=== PATIENT | male | born 1940 | race Two or more races ===

== ENCOUNTER 2016-06-24 18:25 | Inpatient (IN) | payer OTHER, MEDICAID ==
[2016-06-24] MEDS ORDERED: NS 1,000 ML IV ONE ×2 (19:31→22:45)
--- NOTE | 2016-06-24 19:34 | EDPHY ---
H & P Stated Complaint: high blood sugar Time Seen by Provider: 06/24/16 19:26 HPI/ROS: CHIEF COMPLAINT: Hyperglycemia HISTORY OF PRESENT ILLNESS: The patient is a 76 year old man who comes to the emergency department with his son complaining of high glucose measurements all day today. They had lab work done today at the hospital and were called by the doctor and told to take an extra dose of Lantus. The patient is supposed to take 33 units of Lantus every evening and morning. He did not take his morning dose but took 33 units at noon and then was told to take an extra dose at 6:00 p.m. Son states that despite this that is continue to read high. The patient is asymptomatic. He denies having any dizziness or weakness. He denies abdominal pain or vomiting. He does have a history of dementia. He denies chest pain. He denies recent illness or fevers. REVIEW OF SYSTEMS: Constitutional: denies: chills, fever, recent illness, recent injury EENTM: denies: blurred vision, double vision, nose congestion Respiratory: denies: cough, shortness of breath Cardiac: denies: chest pain, irregular heart rate, lightheadedness, palpitations Gastrointestinal/Abdominal: denies: abdominal pain, diarrhea, nausea, vomiting, blood streaked stools Genitourinary: denies: dysuria, frequency, hematuria, pain Musculoskeletal: denies: joint pain, muscle pain Skin: denies: lesions, rash, jaundice, bruising Neurological: denies: headache, numbness, paresthesia, tingling, dizziness, weakness Hematologic/Lymphatic: denies: blood clots, easy bleeding, easy bruising Immunologic/allergic: denies: HIV/AIDS, transplant EXAM: GENERAL: Well-appearing, well-nourished and in no acute distress. HEAD: Atraumatic, normocephalic. EYES: Pupils equal round and reactive to light, extraocular movements intact, sclera anicteric, conjunctiva are normal. ENT: TMs normal, nares patent, oropharynx clear without exudates. Moist mucous membranes. NECK: Normal range of motion, supple without lymphadenopathy or JVD. LUNGS: Breath sounds clear to auscultation bilaterally and equal. No wheezes rales or rhonchi. HEART: Regular rate and rhythm without murmurs, rubs or gallops. ABDOMEN: Soft, nontender, normoactive bowel sounds. No guarding, no rebound. No masses appreciated. BACK: No CVA tenderness, no spinal tenderness, step-offs or deformities EXTREMITIES: Normal range of motion, no pitting or edema. No clubbing or cyanosis. NEUROLOGICAL: Cranial nerves II through XII grossly intact. Normal speech, normal gait. 5/5 strength, normal movement in all extremities, normal sensation PSYCH: Normal mood, normal affect. SKIN: Warm, dry, normal turgor, no visible rashes or lesions. Source: Patient Exam Limitations: No limitations - Personal History Current Tetanus/Diphtheria Vaccine: Unsure Current Tetanus Diphtheria and Acellular Pertussis (TDAP): Unsure - Medical/Surgical History Hx Asthma: No Hx Chronic Respiratory Disease: No Hx Diabetes: Yes Hx Cardiac Disease: Yes Hx Renal Disease: Yes Hx Cirrhosis: No Hx Alcoholism: Yes Hx HIV/AIDS: No Hx Splenectomy or Spleen Trauma: No Other PMH: PMH: Dementia, CVA, chronic kidney disease, DM type 2, HTN. PSH: - Family History Significant Family History: No pertinent family hx - Social History Smoking Status: Never smoked Alcohol Use: Sober Drug Use: None Constitutional: Initial Vital Signs Temperature (C) 36.4 C 06/24/16 18:38 Heart Rate 71 06/24/16 18:38 Respiratory Rate 16 06/24/16 18:38 Blood Pressure 154/85 H 06/24/16 18:38 O2 Sat (%) 96 06/24/16 18:38 O2 Delivery Mode Room Air Allergies/Adverse Reactions: glyburide Allergy (Verified 06/24/16 18:42) metformin Allergy (Verified 06/24/16 18:42) Home Medications: Medication Instructions Recorded Cholecalciferol Vit D3 [Vitamin D3 1,000 units PO DAILY 05/17/15 (*)] Furosemide [Lasix 40 MG (*)] 40 mg PO DAILY 05/17/15 Levothyroxine [Synthroid 75 mcg 75 mcg PO DAILY06 05/17/15 (*)] Losartan Potassium [Cozaar 25 mg 25 mg PO DAILY 05/17/15 (*)] Pravastatin Sodium [Pravachol] 40 mg PO HS 05/17/15 Solifenacin Succinate [Vesicare] 10 mg PO DAILY 05/17/15 amLODIPine BESYLATE [Norvasc 5 mg 5 mg PO DAILY 05/17/15 (*)] Aspirin EC [Aspirin EC 81 mg (*)] 81 mg PO HS 08/09/15 Clobetasol 0.05% [Temovate Topical 1 sloane TP BID 08/09/15 Solution] Diclofenac Sodium [Voltaren Gel 1 sloane TP DAILY PRN 08/09/15 (*)] Insulin Glargine [Lantus 100 20 units SC BID #0 ml 08/11/15 UNITS/ML (*)] Tamsulosin HCl [Flomax 0.4 MG (*)] 0.4 mg PO HS #30 cap 08/11/15 Vancomycin [Vancocin Oral Liquid] 125 mg PO QID #80 udl 08/11/15 levOFLOXACIN [levAQUIN (*)] 750 mg PO Q2D@1000 #2 tab 08/11/15 Medical Decision Making - Diagnostics EKG Interpretation: An EKG obtained and was read and documented in trace view. Please see trace view for full reading and report. Sinus rhythm, left bundle branch block unchanged from previous ED Course/Re-evaluation: The patient is hyperglycemic and acidotic. He does not have an anion gap because he is also hyponatremic. I have treated him with saline and an insulin bolus and began the drip. I discussed the case with Dr. Juan Antonio Paulino who agrees to admit. The patient has no complaints. I will add an EKG. Differential Diagnosis: Partial list of the Differential diagnosis considered include but were not limited to; hyperglycemia, acidosis, hyponatremia, dehydration, medication noncompliance and although unlikely based on the history and physical exam, I also considered infection, acute coronary disease, CVA. Critical Care Time: I spent a total of 35 minutes of critical care time in obtaining history, performing a physical exam, bedside monitoring of interventions, collecting and interpreting tests and discussion with consultants but not including time spent performing procedures. - Data Points Laboratory Results: Laboratory Results 06/24/16 19:48 06/24/16 19:48 06/24/16 06/24/16 19:48 19:47 WBC 5.53 10^3/uL (3.80-9.50) RBC 4.63 10^6/uL (4.40-6.38) Hgb 11.9 L g/dL (13.7-17.5) POC Hgb 12.9 L gm/dL (14.5-17.3) Hct 35.4 L % (40.0-51.0) POC Hct 38 L % (42.8-50.6) MCV 76.5 L fL (81.5-99.8) MCH 25.7 L pg (27.9-34.1) MCHC 33.6 g/dL (32.4-36.7) RDW 12.9 % (11.5-15.2) Plt Count 165 10^3/uL (150-400) MPV 10.7 fL (8.7-11.7) Neut % (Auto) 70.7 % (39.3-74.2) Lymph % (Auto) 19.9 % (15.0-45.0) [place] % (Auto) 6.5 % (4.5-13.0) Eos % (Auto) 2.0 % (0.6-7.6) Baso % (Auto) 0.5 % (0.3-1.7) Nucleat RBC Rel Count 0.0 % (0.0-0.2) Absolute Neuts (auto) 3.91 10^3/uL (1.70-6.50) Absolute Lymphs (auto) 1.10 10^3/uL (1.00-3.00) Absolute Monos (auto) 0.36 10^3/uL (0.30-0.80) Absolute Eos (auto) 0.11 10^3/uL (0.03-0.40) Absolute Basos (auto) 0.03 10^3/uL (0.02-0.10) Absolute Nucleated RBC 0.00 10^3/uL (0-0.01) Immature Gran % 0.4 % (0.0-1.1) Immature Gran # 0.02 10^3/uL (0.00-0.10) POC Sodium 125 L mEq/L (134-144) Sodium 122 L mEq/L (134-144) POC Potassium 5.1 H mEq/L (3.3-5.0) Potassium 5.5 H mEq/L (3.5-5.2) POC Chloride 95 L mEq/L (96-108) Chloride 90 L mEq/L (97-110) Carbon Dioxide 16 L mEq/l (22-31) Anion Gap 16 mEq/L (8-16) POC BUN 69 H mg/dL (7-23) BUN 76 H mg/dL (7-23) Creatinine 2.5 H mg/dL (0.7-1.3) POC Creatinine 2.7 H mg/dL (0.8-1.5) Estimated GFR 25 Glucose 744 H* mg/dL (70-100) POC Glucose > 700 H* mg/dL (70-100) Serum Osmolality Pending Calcium 8.7 mg/dL (8.5-10.4) Phosphorus 5.1 H mg/dL (2.5-4.5) Magnesium 1.9 mg/dL (1.6-2.3) Beta-Hydroxybutyrate Pending Medications Given: Discontinued Medications Sodium Chloride (Ns) 1,000 mls @ 0 mls/hr IV ONCE ONE PRN Reason: Wide Open Stop: 06/24/16 19:32 Last Admin: 06/24/16 19:31 Dose: 1,000 mls Insulin Human Regular (Humulin R) 10 unit IVP EDNOW ONE Stop: 06/24/16 20:05 Last Admin: 06/24/16 20:38 Dose: 10 units Point of Care Test Results: 06/24/16 19:47 POC Sodium 125 L POC Potassium 5.1 H POC Chloride 95 L POC BUN 69 H POC Creatinine 2.7 H POC Glucose > 700 H* Departure - Departure Disposition: [facility] Inpatient Acute Clinical Impression: Hyperglycemia, Hyponatremia Condition: Fair
[2016-06-24 20:01] LABS: % IMMATURE GRANULYOCYTES 0.4 % (0.0-1.1); ABSOLUTE IMMATURE GRANULOCYTES 0.02 10^3/uL (0.00-0.10); ADD DIFF? NO; ADD MORPH? NO; ADD SCAN? NO; ATYPICAL LYMPHOCYTE FLAG 0 (0-99); FRAGMENT RBC FLAG 0 (0-99); HEMATOCRIT 35.4 % (40.0-51.0); HEMOGLOBIN 11.9 g/dL (13.7-17.5); LEFT SHIFT FLG 0 (0-99); LIPEMIA HEMOLYSIS FLAG 80 (0-99); MEAN CELL HEMOGLOBIN 25.7 pg (27.9-34.1); MEAN CELL HEMOGLOBIN CONCENTR. 33.6 g/dL (32.4-36.7); MEAN CELL VOLUME 76.5 fL (81.5-99.8); MEAN PLATELET VOLUME 10.7 fL (8.7-11.7); PLATELET CLUMPS FLAG 10 (0-99); PLATELET COUNT 165 10^3/uL (150-400); RED BLOOD CELL COUNT 4.63 10^6/uL (4.40-6.38); RED CELL DISTRIBUTION WIDTH 12.9 % (11.5-15.2)
[2016-06-24] MEDS ORDERED: INSULIN REGULAR HUMAN 100 UNIT, COSIGN. REQUIRED 1 EA in NS 100 ML IV ONE (20:04)
[2016-06-24] MEDS ORDERED: INSULIN REGULAR HUMAN 100 UNIT/ML IVP ONE (20:04)
[2016-06-24 20:17] LABS: ANION GAP 16 mEq/L (8-16); CALCIUM 8.7 mg/dL (8.5-10.4); CARBON DIOXIDE 16 mEq/l (22-31); CHLORIDE 90 mEq/L (97-110); CREATININE 2.5 mg/dL (0.7-1.3); GLOMERULAR FILTRATION RATE 25; MAGNESIUM 1.9 mg/dL (1.6-2.3); POTASSIUM 5.5 mEq/L (3.5-5.2); SODIUM 122 mEq/L (134-144)
[2016-06-24 20:28] LABS: GLUCOSE 744 mg/dL (70-100)
[2016-06-24 20:39] LABS: B-HYDROXYBUTYRATE 0.25 mmol/L (0.02-0.27)
[2016-06-24] MEDS ORDERED: INSULIN REGULAR HUMAN 100 UNIT in NS 100 ML IV SCH ×2 (20:44→23:00)
--- NOTE | 2016-06-24 20:49 | CPEKG ---
Heart Rate: 69 RR Interval: 870 P-R Interval: 172 QRSD Interval: 182 QT Interval: 468 QTC Interval: 502 P [place]: 5 QRS [place]: -52 T Wave [place]: 95 EKG Severity - ABNORMAL ECG - EKG Impression: SINUS RHYTHM EKG Impression: LEFT BUNDLE BRANCH BLOCK EKG Impression: unchanged from previous Electronically Signed By: Andrews Lopez 24-Jun-2016 20:49:18
[2016-06-24 22:05] LABS: ANION GAP 12 mEq/L (8-16); CALCIUM 8.3 mg/dL (8.5-10.4); CARBON DIOXIDE 19 mEq/l (22-31); CHLORIDE 98 mEq/L (97-110); CREATININE 2.4 mg/dL (0.7-1.3); GLOMERULAR FILTRATION RATE 26; POTASSIUM 4.4 mEq/L (3.5-5.2); SODIUM 129 mEq/L (134-144)
[2016-06-24 22:18] LABS: GLUCOSE 515 mg/dL (70-100)
[2016-06-24] MEDS ORDERED: ACETAMINOPHEN 650 MG SUPP PR PRN (22:42)
--- NOTE | 2016-06-25 00:40 | PDGENHP ---
History and Physical - Chief Complaint elevated blood sugar - History of Present Illness 76 yo M with PMH of uncontrolled DM, dementia and ckd admitted with concerns of BS being very elevated noted by his son and labs obtained per Dr. Núñez earlier today. Patient is Lao speaking only, but also poor historian 2/2 his dementia, and much of this history is therefore obtained from his family present at bedside. They note that he has seemed more tired than usual, but that he also will never complain, and no matter what, will say he is "fine". He does note that he has been very thirsty lately. Patient lives independently with his , who is wheelchair bound and also diabetic. They have some help with their medications by visiting nurses. He denies non compliance with medications. His states that not long ago he was having issues with low blood sugar, to the 30s. She believes his BS has been largely well controlled. Reviewed with them that his A1c was over 16. He denies any other complaints. History Information - Allergies/Home Medication List Allergies/Adverse Reactions: glyburide Allergy (Verified 06/24/16 18:42) metformin Allergy (Verified 06/24/16 18:42) Home Medications: Cholecalciferol Vit D3 [Vitamin D3 (*)] 1,000 units PO DAILY 05/17/15 [Last Taken 08/08/15] Furosemide [Lasix 40 MG (*)] 40 mg PO DAILY 05/17/15 [Last Taken 08/08/15] Levothyroxine [Synthroid 75 mcg (*)] 75 mcg PO DAILY06 05/17/15 [Last Taken ] Losartan Potassium [Cozaar 25 mg (*)] 25 mg PO DAILY 05/17/15 [Last Taken ] amLODIPine BESYLATE [Norvasc 5 mg (*)] 5 mg PO DAILY 05/17/15 [Last Taken ] Aspirin EC [Aspirin EC 81 mg (*)] 81 mg PO HS 08/09/15 [Last Taken 08/07/15] Insulin Glargine [Lantus 100 UNITS/ML (*)] 33 units SC BID 06/24/16 [Last Taken Unknown] I have personally reviewed and updated: family history, medical history, social history, surgical history - Past Medical History CVA, dementia, diabetes type 2, GERD, hypertension Additional medical history: CKD--baseline creatinine 2.5. hypothyroid. hx of c diff. EF 55% - Surgical History Reports: no pertinent surgical hx - Family History Positive for: non-pertinent - Social History Smoking Status: Never smoked Alcohol Use: Sober (prior heavy etoh) Drug Use: None Additional social history: lives independently with Review of Systems ROS: 10pt was reviewed & negative except for what was stated in HPI & below Physical Exam Temp Pulse Resp BP Pulse Ox 36.6 C 70 12 144/74 H 98 06/24/16 23:11 06/24/16 23:11 06/24/16 23:11 06/24/16 23:11 06/24/16 23:11 Constitutional: no apparent distress, appears nourished, chronically ill appearing, unkempt Eyes: PERRL Ears, Nose, Mouth, Throat: moist mucous membranes, hearing normal Cardiovascular: regular rate and rhythym, no murmur, rub, or gallop, No edema Respiratory: no respiratory distress, no rales or rhonchi Gastrointestinal: normoactive bowel sounds, soft, non-tender abdomen Skin: warm, normal color Musculoskeletal: full muscle strength, No asymmetric calves Neurologic: CN II-XII Intact, No weakness, No numbness Psychiatric: interacting appropriately, encephalopathic Lab Data & Imaging Review 06/24/16 19:48 06/24/16 21:40 WBC 5.53 10^3/uL (3.80-9.50) 06/24/16 19:48 RBC 4.63 10^6/uL (4.40-6.38) 06/24/16 19:48 Hgb 11.9 g/dL (13.7-17.5) L 06/24/16 19:48 POC Hgb 12.9 gm/dL (14.5-17.3) L 06/24/16 19:47 Hct 35.4 % (40.0-51.0) L 06/24/16 19:48 POC Hct 38 % (42.8-50.6) L 06/24/16 19:47 MCV 76.5 fL (81.5-99.8) L 06/24/16 19:48 MCH 25.7 pg (27.9-34.1) L 06/24/16 19:48 MCHC 33.6 g/dL (32.4-36.7) 06/24/16 19:48 RDW 12.9 % (11.5-15.2) 06/24/16 19:48 Plt Count 165 10^3/uL (150-400) 06/24/16 19:48 MPV 10.7 fL (8.7-11.7) 06/24/16 19:48 Neut % (Auto) 70.7 % (39.3-74.2) 06/24/16 19:48 Lymph % (Auto) 19.9 % (15.0-45.0) 06/24/16 19:48 [place] % (Auto) 6.5 % (4.5-13.0) 06/24/16 19:48 Eos % (Auto) 2.0 % (0.6-7.6) 06/24/16 19:48 Baso % (Auto) 0.5 % (0.3-1.7) 06/24/16 19:48 Nucleat RBC Rel Count 0.0 % (0.0-0.2) 06/24/16 19:48 Absolute Neuts (auto) 3.91 10^3/uL (1.70-6.50) 06/24/16 19:48 Absolute Lymphs (auto) 1.10 10^3/uL (1.00-3.00) 06/24/16 19:48 Absolute Monos (auto) 0.36 10^3/uL (0.30-0.80) 06/24/16 19:48 Absolute Eos (auto) 0.11 10^3/uL (0.03-0.40) 06/24/16 19:48 Absolute Basos (auto) 0.03 10^3/uL (0.02-0.10) 06/24/16 19:48 Absolute Nucleated RBC 0.00 10^3/uL (0-0.01) 06/24/16 19:48 Immature Gran % 0.4 % (0.0-1.1) 06/24/16 19:48 Immature Gran # 0.02 10^3/uL (0.00-0.10) 06/24/16 19:48 POC Sodium 125 mEq/L (134-144) L 06/24/16 19:47 Sodium 129 mEq/L (134-144) L 06/24/16 21:40 POC Potassium 5.1 mEq/L (3.3-5.0) H 06/24/16 19:47 Potassium 4.4 mEq/L (3.5-5.2) 06/24/16 21:40 POC Chloride 95 mEq/L (96-108) L 06/24/16 19:47 Chloride 98 mEq/L (97-110) 06/24/16 21:40 Carbon Dioxide 19 mEq/l (22-31) L 06/24/16 21:40 Anion Gap 12 mEq/L (8-16) 06/24/16 21:40 POC BUN 69 mg/dL (7-23) H 06/24/16 19:47 BUN 73 mg/dL (7-23) H 06/24/16 21:40 Creatinine 2.4 mg/dL (0.7-1.3) H 06/24/16 21:40 POC Creatinine 2.7 mg/dL (0.8-1.5) H 06/24/16 19:47 Estimated GFR 26 06/24/16 21:40 Glucose 515 mg/dL (70-100) H* 06/24/16 21:40 POC Glucose 268 mg/dL (70-100) H 06/24/16 23:12 Serum Osmolality 329 mosmo/kg (280-297) H 06/24/16 19:48 Calcium 8.3 mg/dL (8.5-10.4) L 06/24/16 21:40 Phosphorus 5.1 mg/dL (2.5-4.5) H 06/24/16 19:48 Magnesium 1.9 mg/dL (1.6-2.3) 06/24/16 19:48 Beta-Hydroxybutyrate 0.25 mmol/L (0.02-0.27) 06/24/16 19:48 Urine Osmolality 405 mosmo/kg (300-900) 06/24/16 22:00 Visualized and Interpreted EKG results: Yes EKG Interpretation: Positive for: left bundle branch block, normal sinsus rhythm Assessment & Plan Assessment: 76 yo M with hx of uncontrolled DM pw HHS # HHS: BS > 700 on arrival, not acidotic but with increased somnolence c/w HHS. Will rehydrates, start insulin gtt for now and transition to SC insulin in am. Monitoring serial labs. # uncontrolled DM2: with AIc of 16.6, patient and his seem to lack some insight into what the control of his DM has really been. Son present at bedside is involved and recognizes the concerns associated with such poorly controlled BS. Tx for now as above, will need close f/u for improved gluc mgmt. # ckd: this seems to be at baseline, will monitor while in house # hyperkalemia: in setting of above, improved with IVF, no ecg changes # hyponatremia: pseudohyponatremia related to elevated BS, improving # dementia: slightly worse than baseline currently in setting of HHS, monitoring # DNR # IP status, will likely need > 48 hours stay for eval/mgmt of above Pt new to my care. Old records reviewed and summarized as above. Care plan reviewed with ER doctor including plans for insulin. Further hx obtained from patients family present at bedside.
[2016-06-25 01:02] LABS: ANION GAP 10 mEq/L (8-16); CALCIUM 7.5 mg/dL (8.5-10.4); CARBON DIOXIDE 19 mEq/l (22-31); CHLORIDE 107 mEq/L (97-110); CREATININE 2.1 mg/dL (0.7-1.3); GLOMERULAR FILTRATION RATE 31; GLUCOSE 177 mg/dL (70-100); POTASSIUM 3.8 mEq/L (3.5-5.2); SODIUM 136 mEq/L (134-144)
[2016-06-25] MEDS ORDERED: D50W 25 GM/50 ML SYR IVP ONE (04:19)
[2016-06-25 04:33] LABS: % IMMATURE GRANULYOCYTES 0.4 % (0.0-1.1); ABSOLUTE IMMATURE GRANULOCYTES 0.02 10^3/uL (0.00-0.10); ADD DIFF? NO; ADD MORPH? NO; ADD SCAN? NO; ATYPICAL LYMPHOCYTE FLAG 10 (0-99); FRAGMENT RBC FLAG 0 (0-99); HEMOGLOBIN 10.2 g/dL (13.7-17.5); LEFT SHIFT FLG 0 (0-99); LIPEMIA HEMOLYSIS FLAG 90 (0-99); MEAN CELL HEMOGLOBIN 26.5 pg (27.9-34.1); MEAN CELL HEMOGLOBIN CONCENTR. 35.2 g/dL (32.4-36.7); MEAN CELL VOLUME 75.3 fL (81.5-99.8); MEAN PLATELET VOLUME 10.4 fL (8.7-11.7); PLATELET CLUMPS FLAG 0 (0-99); PLATELET COUNT 151 10^3/uL (150-400); RED BLOOD CELL COUNT 3.85 10^6/uL (4.40-6.38); RED CELL DISTRIBUTION WIDTH 12.8 % (11.5-15.2)
[2016-06-25 04:54] LABS: ANION GAP 10 mEq/L (8-16); CALCIUM 8.2 mg/dL (8.5-10.4); CARBON DIOXIDE 21 mEq/l (22-31); CHLORIDE 106 mEq/L (97-110); CREATININE 2.3 mg/dL (0.7-1.3); GLOMERULAR FILTRATION RATE 28; GLUCOSE 55 mg/dL (70-100); MAGNESIUM 1.8 mg/dL (1.6-2.3); SODIUM 137 mEq/L (134-144)
[2016-06-25] MEDS: NS 1,000 ML IV SCH ×4 (05:24→21:24)
[2016-06-25] MEDS ORDERED: D50W 25 GM/50 ML SYR IVP PRN (06:37)
[2016-06-25] MEDS: HEPARIN 5,000 UNIT/0.5 ML SYR SC SCH ×3 (06:47→21:09)
[2016-06-25] MEDS: LEVOTHYROXINE 75 MCG TAB PO SCH (06:47)
[2016-06-25] MEDS ORDERED: amLODIPine BESYLATE 5 MG TAB PO SCH ×2 (09:00→17:48)
[2016-06-25] MEDS ORDERED: INSULIN REGULAR HUMAN 100 UNIT/ML SC ONE (09:00)
[2016-06-25] MEDS: CHOLECALCIFEROL VIT D3 1,000 UNITS TAB PO SCH (09:45)
[2016-06-25] MEDS: FUROSEMIDE 40 MG TAB PO SCH (09:45)
[2016-06-25] MEDS: LOSARTAN POTASSIUM 25 MG TAB PO SCH (09:45)
[2016-06-25] MEDS: PANTOPRAZOLE SODIUM 40 MG TAB PO SCH (09:45)
[2016-06-25] MEDS: INSULIN LISPRO 100 UNIT/ML SC SCH ×3 (12:58→17:43)
--- NOTE | 2016-06-25 17:46 | HOSPPROG ---
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 # chronic dementia at baseline #Dehydration due to above PLANS: -continue IV hydration for -For now continue short-acting insulin to determine what his daily needs are and eventually resume long-acting insulin once we see where he ends up -he should probably treated with both long and short-acting insulin at home but he has had lot of hypoglycemia problems doing so; it is clear that he will need to have more diabetes monitoring to safely treat his diabetes -physical occupational therapies; he will need supervised facility care at the time of discharge due to fall risk as well as his diabetes needs -increase antihypertensives SUBJECTIVE: the patient states he feels well His tells me that he has had extensive problems with hypoglycemia at home with various insulin regimens. They finally ended up on a lower dose of long- acting insulin without any short-acting and he now comes in with sugars greater than 700. In retrospect his does recognize that he has been quite polyuric and with marked polydipsia at home for probably 2 or 3 months. Due to her own disabilities however she has not been monitoring his sugars and his dementia prevents him from doing it himself. OBJECTIVE Vitals reviewed: Hypertension, otherwise Stable without fever Exam: alert oriented skin warm dry color ok resps not labored lungs clear BSs heart regular abd soft nondistended nontender, bowel sounds present limbs warm, no edema iv site ok Objective: Vital Signs Temp Pulse Resp BP Pulse Ox 36.3 C 70 18 181/80 H 98 06/25/16 17:21 06/25/16 17:21 06/25/16 17:21 06/25/16 17:21 06/25/16 17:21 Laboratory Results 06/25/16 04:10 06/25/16 04:10 06/24/16 06/25/16 06/26/16 06:59 06:59 06:59 Intake Total 0844 2901 Output Total 150 225 Balance 2556 7088 ICD10 Worksheet Patient Problems: Problems Problem Status Diagnosed Hyperglycemia Acute Hyponatremia Acute Acute on chronic renal insufficiency Acute Altered mental status Acute C. difficile diarrhea Acute 08/09/15 Chronic Disease Mgmt/Transitional Care Acute Chronic renal failure Acute Elevated troponin Acute Pneumonia Acute Rash and nonspecific skin eruption Acute
[2016-06-25] MEDS: amLODIPine BESYLATE 5 MG TAB PO SCH (18:42)
[2016-06-25] MEDS: METOPROLOL TARTRATE 25 MG TAB PO SCH (21:07)
[2016-06-25] MEDS: ASPIRIN EC 81 MG TAB PO SCH (21:07)
[2016-06-25] MEDS: TAMSULOSIN HCL 0.4 MG CAP PO SCH (21:07)
[2016-06-26] MEDS: NS 1,000 ML IV SCH ×2 (02:47→11:28)
[2016-06-26] MEDS: HEPARIN 5,000 UNIT/0.5 ML SYR SC SCH ×3 (05:46→21:22)
[2016-06-26] MEDS: LEVOTHYROXINE 75 MCG TAB PO SCH (05:47)
[2016-06-26] MEDS: FUROSEMIDE 40 MG TAB PO SCH (09:21)
[2016-06-26] MEDS: amLODIPine BESYLATE 5 MG TAB PO SCH (09:21)
[2016-06-26] MEDS: METOPROLOL TARTRATE 25 MG TAB PO SCH ×2 (09:21→21:23)
[2016-06-26] MEDS: CHOLECALCIFEROL VIT D3 1,000 UNITS TAB PO SCH (09:22)
[2016-06-26] MEDS: PANTOPRAZOLE SODIUM 40 MG TAB PO SCH (09:22)
[2016-06-26] MEDS: LOSARTAN POTASSIUM 25 MG TAB PO SCH (09:22)
[2016-06-26] MEDS: INSULIN LISPRO 100 UNIT/ML SC SCH ×6 (09:29→18:13)
--- NOTE | 2016-06-26 16:22 | HOSPPROG ---
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 # chronic dementia at baseline #Dehydration due to above PLANS: -stop IV hydration fand follow sugars -For now continue short-acting insulin to determine what his daily needs are and eventually resume long-acting insulin once we see where he ends up -he should probably treated with both long and short-acting insulin at home but he has had lot of hypoglycemia problems doing so; it is clear that he will need to have more diabetes monitoring to safely treat his diabetes -physical occupational therapies; he will need supervised facility care at the time of discharge due to fall risk as well as his diabetes needs -increase antihypertensives SUBJECTIVE: the patient states he feels well no acute abnormal ss walking better OBJECTIVE Vitals reviewed: Hypertension, otherwise Stable without fever Exam: alert oriented skin warm dry color ok resps not labored lungs clear BSs heart regular abd soft nondistended nontender, bowel sounds present limbs warm, no edema iv site ok sugars in reasonable range w no lows Objective: Vital Signs Temp Pulse Resp BP Pulse Ox 36.4 C 60 16 148/66 H 97 06/26/16 16:00 06/26/16 16:00 06/26/16 16:00 06/26/16 16:00 06/26/16 16:00 Laboratory Results 06/25/16 04:10 06/25/16 04:10 06/25/16 06/26/16 06/27/16 06:59 06:59 06:59 Intake Total 0910 7293 Output Total 150 225 Balance 7200 4970 ICD10 Worksheet Patient Problems: Problems Problem Status Diagnosed Hyperglycemia Acute Hyponatremia Acute Acute on chronic renal insufficiency Acute Altered mental status Acute C. difficile diarrhea Acute 08/09/15 Chronic Disease Mgmt/Transitional Care Acute Chronic renal failure Acute Elevated troponin Acute Pneumonia Acute Rash and nonspecific skin eruption Acute
[2016-06-26] MEDS: TAMSULOSIN HCL 0.4 MG CAP PO SCH (21:22)
[2016-06-26] MEDS: ASPIRIN EC 81 MG TAB PO SCH (21:23)
[2016-06-27] MEDS: LEVOTHYROXINE 75 MCG TAB PO SCH (06:26)
[2016-06-27] MEDS: HEPARIN 5,000 UNIT/0.5 ML SYR SC SCH ×3 (06:26→21:22)
[2016-06-27] MEDS: CHOLECALCIFEROL VIT D3 1,000 UNITS TAB PO SCH (08:28)
[2016-06-27] MEDS: INSULIN LISPRO 100 UNIT/ML SC SCH ×6 (08:28→17:29)
[2016-06-27] MEDS: amLODIPine BESYLATE 5 MG TAB PO SCH (08:28)
[2016-06-27] MEDS: PANTOPRAZOLE SODIUM 40 MG TAB PO SCH (08:29)
[2016-06-27] MEDS: FUROSEMIDE 40 MG TAB PO SCH (08:29)
[2016-06-27] MEDS: METOPROLOL TARTRATE 25 MG TAB PO SCH ×2 (08:29→21:22)
[2016-06-27] MEDS: LOSARTAN POTASSIUM 25 MG TAB PO SCH (08:29)
[2016-06-27] MEDS: INSULIN GLARGINE 100 UNITS/ML SYRINGE SC SCH ×2 (12:02→21:22)
[2016-06-27 12:53] LABS: HEMATOCRIT 30.2 % (40.0-51.0); HEMOGLOBIN 10.4 g/dL (13.7-17.5); MEAN CELL HEMOGLOBIN 26.9 pg (27.9-34.1); MEAN CELL HEMOGLOBIN CONCENTR. 34.4 g/dL (32.4-36.7); RED BLOOD CELL COUNT 3.87 10^6/uL (4.40-6.38); RED CELL DISTRIBUTION WIDTH 13.8 % (11.5-15.2)
[2016-06-27 13:10] LABS: ANION GAP 11 mEq/L (8-16); CALCIUM 8.4 mg/dL (8.5-10.4); CARBON DIOXIDE 18 mEq/l (22-31); CHLORIDE 108 mEq/L (97-110); CREATININE 2.5 mg/dL (0.7-1.3); GLOMERULAR FILTRATION RATE 25; GLUCOSE 277 mg/dL (70-100); POTASSIUM 4.8 mEq/L (3.5-5.2); SODIUM 137 mEq/L (134-144)
--- NOTE | 2016-06-27 14:29 | HOSPPROG ---
Hospitalist Progress Note Assessment/Plan: # hyperosmolar nonketotic diabetic state- BS in 700's on admit - pt with both hypo and hyperglycemia at home - previously on 33 units lantus BID BS 230-290's overnight - 32 units of SSI - start glargine 10units BID - cont SSI # uncontrolled type 2 diabetes mellitus- as above - goal should be to remain in low 200's to avoid hypoglycemia at home # uncontrolled hypertension- SBP 160-170's- EKG( personally reviewed and interpreted) left bundle branch block no acute changes oxygen saturations 94% on room air - continue norvasc and lasix - - increase losartan to 50mg daily # Gait instability, chronic but unsafe with high fall risk - PT/OT # chronic dementia at baseline #Dehydration due to above- resolving # proph - lovenox # diet - diabetic # dispo - suspect tomorrow if glycemic control improved and stable on lantus BID I have discussed the case with physical therapy- patient ambulated to the end of the [place] yesterday they see improvement in strength Subjective: hungry and denies pain Objective: Vital Signs Temp Pulse Resp BP Pulse Ox 37.2 C 62 14 162/81 H 95 06/27/16 07:41 06/27/16 07:41 06/27/16 07:41 06/27/16 08:28 06/27/16 07:41 Laboratory Results 06/27/16 12:17 06/27/16 12:17 06/26/16 06/27/16 06/28/16 05:59 05:59 05:59 Intake Total 5191 1400 Output Total 225 200 Balance 4966 1200 - Physical Exam Constitutional: obese Eyes: anicteric sclera Ears, Nose, Mouth, Throat: moist mucous membranes Cardiovascular: regular rate and rhythym Respiratory: no respiratory distress, no rales or rhonchi Gastrointestinal: normoactive bowel sounds, soft, non-tender abdomen Genitourinary: no bladder fullness Skin: warm, normal color Musculoskeletal: No asymmetric calves Neurologic: No AAOx3 Psychiatric: interacting appropriately, No agitated Lymph, Heme, Immunologic: no cervical LAD ICD10 Worksheet Patient Problems: Problems Problem Status Diagnosed Hyperglycemia Acute Hyponatremia Acute Acute on chronic renal insufficiency Acute Altered mental status Acute C. difficile diarrhea Acute 08/09/15 Chronic Disease Mgmt/Transitional Care Acute Chronic renal failure Acute Elevated troponin Acute Pneumonia Acute Rash and nonspecific skin eruption Acute
[2016-06-27 16:26] VITALS: RESP 16
[2016-06-27] MEDS: ASPIRIN EC 81 MG TAB PO SCH (21:22)
[2016-06-27] MEDS: TAMSULOSIN HCL 0.4 MG CAP PO SCH (21:22)
[2016-06-28] MEDS: HEPARIN 5,000 UNIT/0.5 ML SYR SC SCH ×3 (06:09→21:13)
[2016-06-28] MEDS: LEVOTHYROXINE 75 MCG TAB PO SCH (06:09)
[2016-06-28] MEDS: INSULIN LISPRO 100 UNIT/ML SC SCH ×5 (08:19→19:13)
[2016-06-28] MEDS: INSULIN GLARGINE 100 UNITS/ML SYRINGE SC SCH ×2 (08:22→21:12)
[2016-06-28] MEDS: METOPROLOL TARTRATE 25 MG TAB PO SCH ×2 (08:25→19:56)
[2016-06-28] MEDS: FUROSEMIDE 40 MG TAB PO SCH (08:25)
[2016-06-28] MEDS: amLODIPine BESYLATE 5 MG TAB PO SCH (08:25)
[2016-06-28] MEDS: CHOLECALCIFEROL VIT D3 1,000 UNITS TAB PO SCH (08:26)
[2016-06-28] MEDS: LOSARTAN POTASSIUM 50 MG TAB PO SCH (08:26)
[2016-06-28] MEDS: PANTOPRAZOLE SODIUM 40 MG TAB PO SCH (08:26)
[2016-06-28] MEDS ORDERED: INSULIN GLARGINE 100 UNITS/ML SYRINGE SC ONE (09:00)
[2016-06-28] MEDS ORDERED: INSULIN LISPRO 100 UNIT/ML SC SCH (09:05)
[2016-06-28 10:02] LABS: CARBON DIOXIDE 20 mEq/l (22-31); CREATININE 2.4 mg/dL (0.7-1.3); GLOMERULAR FILTRATION RATE 26
[2016-06-28 10:11] LABS: ANION GAP 9 mEq/L (8-16); CALCIUM 8.2 mg/dL (8.5-10.4); CHLORIDE 104 mEq/L (97-110); GLUCOSE 312 mg/dL (70-100); POTASSIUM 4.4 mEq/L (3.5-5.2); SODIUM 133 mEq/L (134-144)
--- NOTE | 2016-06-28 12:50 | HOSPPROG ---
Hospitalist Progress Note Assessment/Plan: # hyperosmolar nonketotic diabetic state- BS in 700's on admit - previously on 33 units lantus BID BS 230-290's overnight - 38 units of SSI- BS > 350 after lunch today - increase glargine 25 units BID - increase TID meal insulin to 10 units # uncontrolled type 2 diabetes mellitus- as above - goal should be to remain in low 200's to avoid hypoglycemia at home # uncontrolled hypertension- SBP 160-170's- EKG (personally reviewed and interpreted) left bundle branch block no acute changes oxygen saturations 94% on room air - continue norvasc and lasix - increased losartan to 50mg daily- continue to monitor on new dose # Gait instability, chronic but unsafe with high fall risk - PT/OT # chronic dementia at baseline # Dehydration due to above- resolving # proph - lovenox # diet - diabetic # dispo - suspect tomorrow if glycemic control improved and stable on lantus BID I have discussed the case with RN - will further increase both glargine and meal insulin as Bs > 350 after lunch Subjective: anxious to get home Objective: Vital Signs Temp Pulse Resp BP Pulse Ox 37.0 C 58 L 16 126/59 H 93 06/28/16 11:28 06/28/16 11:28 06/28/16 11:28 06/28/16 11:28 06/28/16 11:28 Laboratory Results 06/27/16 12:17 06/28/16 09:30 06/27/16 06/28/16 06/29/16 05:59 05:59 05:59 Intake Total 1400 500 Output Total 200 1400 Balance 1200 -900 - Physical Exam Constitutional: appears nourished Eyes: anicteric sclera Ears, Nose, Mouth, Throat: moist mucous membranes Cardiovascular: regular rate and rhythym Respiratory: no respiratory distress, no rales or rhonchi Gastrointestinal: normoactive bowel sounds, soft, non-tender abdomen Genitourinary: no bladder fullness Skin: warm, normal color Musculoskeletal: No asymmetric calves Neurologic: No AAOx3 Psychiatric: interacting appropriately, No agitated Lymph, Heme, Immunologic: no cervical LAD ICD10 Worksheet Patient Problems: Problems Problem Status Diagnosed Hyperglycemia Acute Hyponatremia Acute Acute on chronic renal insufficiency Acute Altered mental status Acute C. difficile diarrhea Acute 02/26/16 Chronic Disease Mgmt/Transitional Care Acute Chronic renal failure Acute Elevated troponin Acute Pneumonia Acute Rash and nonspecific skin eruption Acute
[2016-06-28] MEDS: LOSARTAN POTASSIUM 25 MG TAB PO ONE ×2 (15:47→17:15)
[2016-06-28] MEDS: ASPIRIN EC 81 MG TAB PO SCH (19:56)
[2016-06-28] MEDS: TAMSULOSIN HCL 0.4 MG CAP PO SCH (19:57)
[2016-06-28] MEDS ORDERED: INSULIN GLARGINE 100 UNITS/ML SYRINGE SC SCH ×2 (21:00)
[2016-06-29] MEDS: HEPARIN 5,000 UNIT/0.5 ML SYR SC SCH (05:23)
[2016-06-29] MEDS: LEVOTHYROXINE 75 MCG TAB PO SCH (05:25)
[2016-06-29 08:07] VITALS: TEMP 99.1; O2SAT 91
[2016-06-29] MEDS: INSULIN LISPRO 100 UNIT/ML SC SCH ×4 (09:35→12:53)
[2016-06-29] MEDS: LOSARTAN POTASSIUM 50 MG TAB PO SCH (09:46)
[2016-06-29] MEDS: FUROSEMIDE 40 MG TAB PO SCH (09:46)
[2016-06-29] MEDS: CHOLECALCIFEROL VIT D3 1,000 UNITS TAB PO SCH (09:46)
[2016-06-29] MEDS: amLODIPine BESYLATE 5 MG TAB PO SCH (09:46)
[2016-06-29] MEDS: PANTOPRAZOLE SODIUM 40 MG TAB PO SCH (09:47)
[2016-06-29] MEDS: METOPROLOL TARTRATE 25 MG TAB PO SCH (09:47)
[2016-06-29] MEDS: INSULIN GLARGINE 100 UNITS/ML SYRINGE SC SCH (09:48)
--- NOTE | 2016-06-29 12:13 | PDIAF ---
- Diagnosis Diagnosis: hyperglycema Code Status: Do Not Resuscitate - Medication Management Discharge Medications: Medications to Continue on Transfer Cholecalciferol Vit D3 [Vitamin D3 (*)] 1,000 units PO DAILY 05/17/15 [Last Taken 08/08/15] Furosemide [Lasix 40 MG (*)] 40 mg PO DAILY 05/17/15 [Last Taken 08/08/15] Levothyroxine [Synthroid 75 mcg (*)] 75 mcg PO DAILY06 05/17/15 [Last Taken ] Losartan Potassium [Cozaar 25 mg (*)] 25 mg PO DAILY 05/17/15 [Last Taken ] amLODIPine BESYLATE [Norvasc 5 mg (*)] 5 mg PO DAILY 05/17/15 [Last Taken ] Aspirin EC [Aspirin EC 81 mg (*)] 81 mg PO HS 08/09/15 [Last Taken 08/07/15] Tamsulosin HCl [Flomax 0.4 MG (*)] 0.4 mg PO HS #30 cap 08/11/15 [Last Taken Unknown] Insulin Glargine [Lantus 100 UNITS/ML (*)] 25 units SC BID #1 btl 06/29/16 [ Last Taken Unknown] Insulin Lispro [humALOG LISPRO 100 units/ml (*)] 10 unit SC TIDMEAL #1 btl 06/29 [Last Taken Unknown] Metoprolol Tartrate [Lopressor 25 mg (*)] 25 mg PO BID #60 tab 06/29/16 [Last Taken Unknown] Discharge Medications: Refer to the Discharge Home Medication list for PRN reason. - Orders Services needed: Home Care, Registered Nurse, Physical Therapy, Occupational Therapy Home Care Face to Face: I certify that this patient was under my care and that I had the required [id number] encounter meeting the encounter requirements on the discharge day. My findings support the fact that the patient is homebound as defined in CMS Chapter 7 Medicare Benefits Manual 30.1.1, The condition of the patient is such that there exists a normal inability to leave home and consequently, leaving home would require a considerable and taxing effort. Diet Recommendation: ADA 2200 consistent carb Diet Texture: Regular Texture Diet - Follow Up Care Current Providers and Referrals: IN STATE,. [Primary Care Provider] - As per Instructions
[2016-06-29 14:13] VITALS: BP 141/65; PULSE 60
--- NOTE | 2016-06-29 16:45 | GDS ---
[f rep st] DISCHARGE SUMMARY DISCHARGE DIAGNOSES: Include: 1. Hyperosmolar nonketotic diabetic state. 2. Uncontrolled diabetes type 2. 3. Uncontrolled hypertension. 4. 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 5. Chronic dementia. 6. Dehydration, secondary to hyperglycemia. HISTORY OF PRESENT ILLNESS: A 76-year-old male, who was brought in with blood sugars in the 700s. F or details of initial presentation, please see the history and physical dated 06/24/2016. CONSULTATIVE SERVICES: None. PROCEDURES: None. HOSPITAL COURSE BY ISSUE: 1. Hyperosmolar nonketotic diabetic state. Patient was admitted, placed on aggressive insulin treat ment with IV insulin, and ultimately transitioned to a long-acting glargine and short-acting t.i.d. L ispro. Patient required several extra days of medication titration as his blood sugars remained elev ated even with up-titration with sugars in the 300s and 400s. After discussion with the outpatient pr ovider, goal for this patient is to be in the 200s as he has additional history of hypoglycemia in e past. We have increased his glargine to 25 units b.i.d. and his mealtime insulin to 10 units t.i. d. On the day of disposition, we had blood sugars ranging from 169 to 201. Patient will be discharg ed on this regimen and is to follow with his outpatient provider. We expect he will need additional up-titration in the outpatient setting when he resumes his home diet. 2. Uncontrolled hypertension. Patient was continued on his multidrug regimen with the addition of a beta-neva, metoprolol 25 mg b.i.d. on the day of disposition, systolic blood pressures were in the 140s to 150s. 3. Gait instability. Patient received PT/OT during his hospital stay and had increased strength brandon ly while under our care. He is being discharged with home physical therapy, occupational therapy fo r continued strengthening and safety. MEDICATIONS AT THE TIME OF DISPOSITION: Please reference medication reconciliation printed 7. FOLLOWUP APPOINTMENTS: Include with his primary care provider in the next 7-10 days for his first po st disposition blood sugar check and blood pressure check. I spent greater than 30 minutes in the planning and coordination of this discharge. /[id number]/MODL
== END 2016-06-29 13:40 | disposition home health service (06) | DRG 638 ==
LOC: OBSVTOIN 22:42 → F2N 23:15 → F3N 06-25 17:14
PROVIDERS: ADMIT Student in an Organized Health Care Education/Training Program; ATTEND Student in an Organized Health Care Education/Training Program
DX: E11.00 Type 2 diabetes mellitus with hyperosmolarity without nonketotic hyperglycemic-hyperosmolar coma (NKHHC) (principal); E11.22 Type 2 diabetes mellitus with diabetic chronic kidney disease; N18.9 Chronic kidney disease, unspecified; F03.90 Unspecified dementia, unspecified severity, without behavioral disturbance, psychotic disturbance, mood disturbance, and anxiety; E87.1 Hypo-osmolality and hyponatremia; E03.9 Hypothyroidism, unspecified; R26.9 Unspecified abnormalities of gait and mobility; E87.5 Hyperkalemia; Z79.4 Long term (current) use of insulin; Z86.73 Personal history of transient ischemic attack (TIA), and cerebral infarction without residual deficits; Z66 Do not resuscitate
CPT/HCPCS: 82947-QW; 96374; 97116-GP; 97162-GP; 97165-GO; 97530-GO; 97530-GP; G8978-GP-CL; G8979-GP-CI; G8987-GO-CL; G8988-GO-CJ; J1815

== ENCOUNTER 2016-07-07 23:28 | Observation (INO) | payer OTHER, MEDICAID ==
--- NOTE | 2016-07-07 23:48 | EDPHY ---
H & P Stated Complaint: Cough, Increased AMS, Rash Time Seen by Provider: 07/07/16 23:39 HPI/ROS: CHIEF COMPLAINT: Increased confusion HISTORY OF PRESENT ILLNESS: The patient is a 76-year-old man with a history of diabetes, dementia and stroke who comes to the emergency department with his family complaining of increased confusion. Is daughter states that he has dementia but is more confused than usual. He was asking them to take him home when he was already home. He was going through his drawers in his room relentlessly and making mess of his house. He was here a week ago for hyperglycemic nonketotic hyperosmolar. He does have a mild rash to his right side where he has been scratching himself. He also has coarse breath sounds. No fever. No new medications. No cough. REVIEW OF SYSTEMS: Constitutional: denies: chills, fever, recent illness, recent injury EENTM: denies: blurred vision, double vision, nose congestion Respiratory: See HPI Cardiac: denies: chest pain, irregular heart rate, lightheadedness, palpitations Gastrointestinal/Abdominal: denies: abdominal pain, diarrhea, nausea, vomiting, blood streaked stools Genitourinary: denies: dysuria, frequency, hematuria, pain Musculoskeletal: denies: joint pain, muscle pain Skin: denies: lesions, rash, jaundice, bruising Neurological: denies: headache, numbness, paresthesia, tingling, dizziness, weakness Hematologic/Lymphatic: denies: blood clots, easy bleeding, easy bruising Immunologic/allergic: denies: HIV/AIDS, transplant EXAM: GENERAL: Well-appearing, well-nourished and in no acute distress. HEAD: Atraumatic, normocephalic. EYES: Pupils equal round and reactive to light, extraocular movements intact, sclera anicteric, conjunctiva are normal. ENT: TMs normal, nares patent, oropharynx clear without exudates. Moist mucous membranes. NECK: Normal range of motion, supple without lymphadenopathy or JVD. LUNGS: rhonchi bilateral bases. HEART: Regular rate and rhythm without murmurs, rubs or gallops. ABDOMEN: Soft, nontender, normoactive bowel sounds. No guarding, no rebound. No masses appreciated. BACK: No CVA tenderness, no spinal tenderness, step-offs or deformities EXTREMITIES: Normal range of motion, no pitting or edema. No clubbing or cyanosis. NEUROLOGICAL: Cranial nerves II through XII grossly intact. Normal speech, normal gait. 5/5 strength, normal movement in all extremities, normal sensation PSYCH: Normal mood, normal affect. SKIN: Mild mild rash to right hip area, appears to be excoriations that are slightly inflamed . No vesicular lesions. Source: Family, Old records Exam Limitations: No limitations - Personal History Current Tetanus Diphtheria and Acellular Pertussis (TDAP): Yes - Medical/Surgical History Hx Asthma: No Hx Chronic Respiratory Disease: No Hx Diabetes: Yes Hx Cardiac Disease: Yes Hx Renal Disease: Yes Hx Cirrhosis: No Hx Alcoholism: Yes Hx HIV/AIDS: No Hx Splenectomy or Spleen Trauma: No Other PMH: PMH: Dementia, CVA, chronic kidney disease, DM type 2, HTN. PSH: - Family History Significant Family History: No pertinent family hx - Social History Smoking Status: Never smoked Alcohol Use: Sober Drug Use: None Constitutional: Initial Vital Signs Temperature (C) 36.7 C 07/07/16 23:29 Heart Rate 79 07/07/16 23:29 Respiratory Rate 20 07/07/16 23:29 Blood Pressure 165/77 H 07/07/16 23:29 O2 Sat (%) 92 07/07/16 23:29 O2 Delivery Mode Room Air Allergies/Adverse Reactions: glyburide Allergy (Verified 06/24/16 18:42) metformin Allergy (Verified 06/24/16 18:42) Home Medications: Medication Instructions Recorded Cholecalciferol Vit D3 [Vitamin D3 1,000 units PO DAILY 05/17/15 (*)] Furosemide [Lasix 40 MG (*)] 40 mg PO DAILY 05/17/15 Levothyroxine [Synthroid 75 mcg 75 mcg PO DAILY06 05/17/15 (*)] Losartan Potassium [Cozaar 25 mg 25 mg PO DAILY 05/17/15 (*)] amLODIPine BESYLATE [Norvasc 5 mg 5 mg PO DAILY 05/17/15 (*)] Aspirin EC [Aspirin EC 81 mg (*)] 81 mg PO HS 08/09/15 Tamsulosin HCl [Flomax 0.4 MG (*)] 0.4 mg PO HS #30 cap 08/11/15 Insulin Glargine [Lantus 100 25 units SC BID #1 btl 01/16/17 UNITS/ML (*)] Insulin Lispro [humALOG LISPRO 100 10 unit SC TIDMEAL #1 btl 06/29/16 units/ml (*)] Metoprolol Tartrate [Lopressor 25 25 mg PO BID #60 tab 06/29/16 mg (*)] Medical Decision Making - Diagnostics Imaging: X-ray: [chest x-ray ] was obtained. I viewed the images myself on the PACS system. My interpretation of the images is: Scarring and chronic airway disease and cardiomegaly, similar to previous. The radiologist interpretation is is chronic scarring and airway disease, cardiomegaly, no definite pneumonia.. ED Course/Re-evaluation: 12:30 a.m. I discussed the case with Dr. Nakita Dorsey who will admit to the medical service. We are currently pending lab work. 1:30 a.m. the patient's lab work is unremarkable. I will order antibiotics cover pneumonia on his difficult to read chest x-ray considering his lung exam. Differential Diagnosis: Partial list of the Differential diagnosis considered include but were not limited to; pneumonia, cellulitis, wound infection, shingles, electrolyte abnormality and although unlikely based on the history and physical exam, I also considered meningitis, stroke, acute coronary disease. - Data Points Laboratory Results: Laboratory Results 07/08/16 00:05 07/08/16 00:05 07/08/16 00:05 WBC 4.84 10^3/uL (3.80-9.50) RBC 4.00 L 10^6/uL (4.40-6.38) Hgb 10.5 L g/dL (13.7-17.5) Hct 31.6 L % (40.0-51.0) MCV 79.0 L fL (81.5-99.8) MCH 26.3 L pg (27.9-34.1) MCHC 33.2 g/dL (32.4-36.7) RDW 13.9 % (11.5-15.2) Plt Count 224 10^3/uL (150-400) MPV 9.1 fL (8.7-11.7) Neut % (Auto) 70.4 % (39.3-74.2) Lymph % (Auto) 17.8 % (15.0-45.0) [place] % (Auto) 7.9 % (4.5-13.0) Eos % (Auto) 3.1 % (0.6-7.6) Baso % (Auto) 0.4 % (0.3-1.7) Nucleat RBC Rel Count 0.0 % (0.0-0.2) Absolute Neuts (auto) 3.41 10^3/uL (1.70-6.50) Absolute Lymphs (auto) 0.86 L 10^3/uL (1.00-3.00) Absolute Monos (auto) 0.38 10^3/uL (0.30-0.80) Absolute Eos (auto) 0.15 10^3/uL (0.03-0.40) Absolute Basos (auto) 0.02 10^3/uL (0.02-0.10) Absolute Nucleated RBC 0.00 10^3/uL (0-0.01) Immature Gran % 0.4 % (0.0-1.1) Immature Gran # 0.02 10^3/uL (0.00-0.10) PT 12.3 SEC (12.0-15.0) INR 0.92 (0.83-1.16) APTT 28.2 SEC (23.0-38.0) VBG Lactic Acid 0.8 mmol/L (0.7-2.1) Sodium 139 mEq/L (134-144) Potassium 5.0 mEq/L (3.5-5.2) Chloride 103 mEq/L (97-110) Carbon Dioxide 21 L mEq/l (22-31) Anion Gap 15 mEq/L (8-16) BUN 65 H mg/dL (7-23) Creatinine 3.0 H mg/dL (0.7-1.3) Estimated GFR 20 Glucose 181 H mg/dL (70-100) Calcium 8.6 mg/dL (8.5-10.4) Total Bilirubin 0.6 mg/dL (0.1-1.4) Medications Given: Discontinued Medications Sodium Chloride (Ns) 1,000 mls @ 0 mls/hr IV ONCE ONE PRN Reason: Wide Open Stop: 07/08/16 00:25 Last Admin: 07/08/16 00:25 Dose: 1,000 mls Departure - Departure Disposition: [facility] Inpatient Acute Clinical Impression: Altered mental status Qualifiers: Altered mental status type: unspecified Qualifier Code: (R41.82) Altered mental status, unspecified Condition: Fair
--- NOTE | 2016-07-08 00:11 | DX ---
PA and Lateral Chest 23:27 Indication: 76-year-old man presenting with infection. Meets sepsis criteria. Comparison: 2 view chest dated August 08, 2015 Findings: Cardiomegaly, diffuse moderate peribronchial thickening and bibasilar atelectasis versus sc arring is similar to July 2015. No definite airspace consolidation. Cardiomegaly is unchanged. No failure or effusion. Impression: 1. No definite pneumonia or effusion. 2. Chronic airways disease and bibasilar atelectasis versus scarring. 3. Cardiomegaly. No failure.
[2016-07-08] MEDS ORDERED: NS 1,000 ML IV ONE (00:24)
[2016-07-08 00:28] LABS: % IMMATURE GRANULYOCYTES 0.4 % (0.0-1.1); ABSOLUTE IMMATURE GRANULOCYTES 0.02 10^3/uL (0.00-0.10); ADD DIFF? NO; ADD MORPH? NO; ADD SCAN? NO; ATYPICAL LYMPHOCYTE FLAG 40 (0-99); FRAGMENT RBC FLAG 0 (0-99); HEMATOCRIT 31.6 % (40.0-51.0); HEMOGLOBIN 10.5 g/dL (13.7-17.5); LEFT SHIFT FLG 0 (0-99); LIPEMIA HEMOLYSIS FLAG 80 (0-99); MEAN CELL HEMOGLOBIN 26.3 pg (27.9-34.1); MEAN CELL HEMOGLOBIN CONCENTR. 33.2 g/dL (32.4-36.7); MEAN PLATELET VOLUME 9.1 fL (8.7-11.7); PLATELET CLUMPS FLAG 0 (0-99); PLATELET COUNT 224 10^3/uL (150-400); RED CELL DISTRIBUTION WIDTH 13.9 % (11.5-15.2)
[2016-07-08 00:31] LABS: INR 0.92 (0.83-1.16); PROTIME(PATIENT) 12.3 SEC (12.0-15.0)
[2016-07-08 00:32] LABS: APTT 28.2 SEC (23.0-38.0)
[2016-07-08 01:12] LABS: BILIRUBIN,TOTAL 0.6 mg/dL (0.1-1.4); CALCIUM 8.6 mg/dL (8.5-10.4); CARBON DIOXIDE 21 mEq/l (22-31); CHLORIDE 103 mEq/L (97-110); GLOMERULAR FILTRATION RATE 20; GLUCOSE 181 mg/dL (70-100); SODIUM 139 mEq/L (134-144)
[2016-07-08 01:23] LABS: ANION GAP 15 mEq/L (8-16)
[2016-07-08] MEDS ORDERED: ACETAMINOPHEN 325 MG TAB PO PRN (01:39)
[2016-07-08] MEDS ORDERED: ONDANSETRON DISINTEGRATING 4 MG TAB PO PRN (01:39)
[2016-07-08] MEDS ORDERED: ONDANSETRON 4 MG/2 ML VIAL IVP PRN (01:39)
[2016-07-08] MEDS ORDERED: D50W 25 GM/50 ML SYR IVP PRN (01:41)
[2016-07-08] MEDS ORDERED: NS 1,000 ML IV SCH ×2 (01:45→06:30)
[2016-07-08 02:08] VITALS: TEMP 97.4
[2016-07-08] MEDS: valACYclovir 500 MG TAB PO SCH ×2 (02:27→09:23)
[2016-07-08] MEDS: HEPARIN 5,000 UNIT/0.5 ML SYR SC SCH ×2 (06:27→15:05)
--- NOTE | 2016-07-08 07:12 | GHP ---
[f rep st] HISTORY AND PHYSICAL DATE OF ADMISSION: 07/07/2016 CHIEF COMPLAINT: Altered mental status. HISTORY OF PRESENT ILLNESS: This is a 76-year-old male with a history of dementia, previous CVA, chr onic kidney disease who was recently admitted to the hospital about a week ago for uncontrolled diabe von in hyperosmolar state. The patient's family states that he had been doing well the last several days after admission. However they did run out of the Humalog insulin that was given to them, althou gh he has been taking Lantus. He states that today he was more confused as the normal. They stated that he told them to take him home when he was already home. He has had some mild cough and mary leon has a cough. Not a lot of sputum. No fevers. No dysuria. He does complain of a rash that has be en itching and bothering him over his right flank. REVIEW OF SYSTEMS: A 10-point review of systems was obtained and it was negative. PAST MEDICAL HISTORY: 1. Type 2 diabetes. Uncontrolled. 2. Chronic kidney disease with a baseline creatinine of 2.5. 3. Dementia. 4. Hypothyroidism. 5. Hypertension. MEDICATIONS: Reviewed. Include Lantus, on Humalog, it was newly diagnosed, newly prescribed as well as losartan, Lasix, amlodipine, levothyroxine, Flomax. SOCIAL HISTORY: No smoking or alcohol. Lives with his and son. FAMILY HISTORY: Reviewed and noncontributory. PHYSICAL EXAM: VITAL SIGNS: Afebrile, blood pressure is 165/77, heart rate 79, oxygen saturation 92 % on room air. GENERAL: The patient is well developed, in no apparent distress. HEENT: Nonicteric sclerae. Extraocular movements intact. Moist mucous membranes. NECK: Supple. No thyromegaly. L UNGS: Good effort, fairly clear with some scattered rhonchi. No wheezing. CARDIOVASCULAR: Regular rate and rhythm. No murmurs, rubs, or gallops. ABDOMEN: Positive bowel sounds. Soft, nontender, nondistended. No hepatosplenomegaly. EXTREMITIES: No clubbing, cyanosis, or edema. SKIN: Right f lank has what appears to be a dermatomal pattern of erythematous fascicularis that have popped. Abad ju, there is a linear area of erythema which looks like an excoriation. On the upper back, there wa s also some slight areas of redness, although those do not look like they are actively inflamed. JM RO: Not oriented but moving all 4 extremities equally. PSYCH: Normal mood and affect. LABS: White count is 4, hemoglobin 10, platelets are normal. Sodium 139, potassium 5.0, BUN 65, cre atinine 3.0. Chest x-ray personally reviewed and interpreted. Shows no active pneumonia. Potential cardiomegaly is unchanged from a year ago. ASSESSMENT: This is a 76-year-old male presenting with acute on chronic encephalopathy, mild dehydra tion, possible shingles. PLAN: 1. Acute encephalopathy. The patient's baseline is that he does have dementia. At this point, I am not sure of the etiology of his altered mental status. His chest x-ray is negative. UA is still pe nding. He does not seem to have any focalizing neurological signs. He does have this fascicular kishan h on his right flank which I do think is shingles. This could be worsening his mental status. We wi ll start Valtrex and await UA. 2. Acute on chronic renal failure. Will give IV fluids. 3. Type 2 diabetes. Uncontrolled. Will continue Lantus sliding scale insulin. CODE STATUS: Patient is a DNR. /[id number]/MODL
[2016-07-08 08:17] VITALS: RESP 24
[2016-07-08] MEDS: INSULIN LISPRO 100 UNIT/ML SC SCH ×3 (09:30→17:08)
[2016-07-08 11:05] LABS: % IMMATURE GRANULYOCYTES 0.4 % (0.0-1.1); ABSOLUTE IMMATURE GRANULOCYTES 0.02 10^3/uL (0.00-0.10); ADD DIFF? NO; ADD MORPH? NO; ADD SCAN? NO; ATYPICAL LYMPHOCYTE FLAG 40 (0-99); FRAGMENT RBC FLAG 0 (0-99); HEMATOCRIT 29.7 % (40.0-51.0); HEMOGLOBIN 9.7 g/dL (13.7-17.5); LEFT SHIFT FLG 10 (0-99); LIPEMIA HEMOLYSIS FLAG 80 (0-99); MEAN CELL HEMOGLOBIN 26.2 pg (27.9-34.1); MEAN CELL HEMOGLOBIN CONCENTR. 32.7 g/dL (32.4-36.7); MEAN CELL VOLUME 80.3 fL (81.5-99.8); MEAN PLATELET VOLUME 9.2 fL (8.7-11.7); PLATELET CLUMPS FLAG 0 (0-99); PLATELET COUNT 201 10^3/uL (150-400); RED CELL DISTRIBUTION WIDTH 14.2 % (11.5-15.2)
[2016-07-08 11:33] VITALS: PULSE 80; O2SAT 94
[2016-07-08] MEDS ORDERED: METOPROLOL TARTRATE 25 MG TAB PO SCH (12:00)
[2016-07-08] MEDS ORDERED: amLODIPine BESYLATE 5 MG TAB PO SCH (12:00)
[2016-07-08] MEDS ORDERED: INSULIN LISPRO 100 UNIT/ML SC SCH (12:00)
[2016-07-08] MEDS ORDERED: LOSARTAN POTASSIUM 25 MG TAB PO SCH (12:00)
[2016-07-08 12:17] LABS: ALANINE AMINOTRANSFERASE 41 IU/L (21-72); ALBUMIN 2.9 g/dL (3.5-5.0); ALKALINE PHOSPHATASE 358 IU/L (38-126); ANION GAP 13 mEq/L (8-16); ASPARTATE AMINOTRANSFERASE 32 IU/L (17-59); BILIRUBIN,TOTAL 0.3 mg/dL (0.1-1.4); CARBON DIOXIDE 20 mEq/l (22-31); CHLORIDE 104 mEq/L (97-110); CREATININE 2.6 mg/dL (0.7-1.3); GLOMERULAR FILTRATION RATE 24; GLUCOSE 251 mg/dL (70-100); POTASSIUM 5.2 mEq/L (3.5-5.2); SODIUM 137 mEq/L (134-144); TOTAL PROTEIN 5.9 g/dL (6.3-8.2)
--- NOTE | 2016-07-08 14:50 | PDIAF ---
- Diagnosis Diagnosis: FTT Code Status: Do Not Resuscitate - Medication Management Discharge Medications: Medications to Continue on Transfer Furosemide [Lasix 40 MG (*)] 40 mg PO DAILY 05/17/15 [Last Taken 08/08/15] Levothyroxine [Synthroid 75 mcg (*)] 75 mcg PO DAILY06 05/17/15 [Last Taken ] Losartan Potassium [Cozaar 25 mg (*)] 25 mg PO DAILY 05/17/15 [Last Taken ] amLODIPine BESYLATE [Norvasc 5 mg (*)] 5 mg PO DAILY 05/17/15 [Last Taken ] Aspirin EC [Aspirin EC 81 mg (*)] 81 mg PO HS 08/09/15 [Last Taken 08/07/15] Insulin Glargine [Lantus 100 UNITS/ML (*)] 25 units SC BID #1 btl 06/29/16 [ Last Taken Unknown] Insulin Lispro [humALOG LISPRO 100 units/ml (*)] 10 unit SC TIDMEAL #1 btl 06/29 [Last Taken Unknown] Metoprolol Tartrate [Lopressor 25 mg (*)] 25 mg PO BID #60 tab 06/29/16 [Last Taken Unknown] Acetaminophen [Tylenol 325mg (*)] 650 mg PO Q4HRS PRN #0 tab 07/08/16 [Last Taken Unknown] Cholecalciferol Vit D3 [Vitamin D3 2000 units tab (OTC)] 2,000 units PO DAILY [Last Taken Unknown] Tamsulosin HCl [Flomax 0.4 MG (*)] 0.4 mg PO MOWEFR@21 07/08/16 [Last Taken Unknown] valACYclovir [Valtrex (*)] 1,000 mg PO Q12HRS #0 tab 07/08/16 [Last Taken Unknown] Discharge Medications: Refer to the Discharge Home Medication list for PRN reason. PICC Care - Routine: N/A - Orders Services needed: Registered Nurse, Physical Therapy, Occupational Therapy Diet Recommendation: ADA 2000 consistent carb - Follow Up Care Current Providers and Referrals: Alexandre Knox MD [Primary Care Provider] - As per Instructions
[2016-07-08 15:35] VITALS: BP 158/74
[2016-07-08 17:23] LABS: COLOR YELLOW; LEUKOCYTE ESTERASE,URINE 3+ (NEGATIVE); NITRITE,URINE NEGATIVE (NEGATIVE)
[2016-07-08 17:32] LABS: RBC,URINE 15-25 /hpf (0-3); WBC,URINE 50-182 /hpf (0-3)
--- NOTE | 2016-07-08 19:19 | GDS ---
[f rep st] DISCHARGE SUMMARY DISCHARGE DIAGNOSES: 1. Altered mental status. 2. Acute encephalopathy. 3. Seiub-fa-tkvflen renal failure. 4. Diabetes mellitus type 2. DISCHARGE PHYSICAL EXAM: GENERAL: The patient is alert, up in the chair. VITAL SIGNS: Afebrile at 36.3, pulse is 80, respiratory rate is 24, blood pressure is158/74, he is saturating 94% on room air . I have seen and evaluated the patient on the day of discharge. HOSPITAL COURSE: The patient is a 76-year-old male with a longstanding history of baseline dementia. He was brought to the emergency room. Complains of increased altered mental status. However, duri ng my exam the patient appears to be at his baseline mentation per his family members. His acute enc ephalopathy is improved. However, the patient does have severe dementia. He requires rehabilitation at [facility]. The patient was recently in the hospital approximately 1 week ag o, at which time, he was scheduled to be discharged to the Memory Care Unit and his family changed th eir mind. He will be discharged today to [facility] for further evaluation and m anagement. He does have [id number] renal failure which has improved during this hospitalizatio n with IV fluid resuscitation. He also suffers from diabetes mellitus type 2 that is uncontrolled. We have re-initiated his insulin therapy. I suspect the potentially was not getting his medications as previously prescribed at home. I have discussed with Case Management who will arrange for his dis position to [facility]. The patient is also anemic which is multifactorial and likely a chronic c ondition. There are no signs of bleeding. DISCHARGE MEDICATIONS: Please refer to EMR form. I have re-initiated the patient's previously presc ribed home medications to the best of my knowledge. PENDING STUDIES: There are none. FOLLOWUP: [facility] his primary care physician[facility] #: [id number]
[2016-07-08] MEDS ORDERED: TAMSULOSIN HCL 0.4 MG CAP PO SCH (21:00)
[2016-07-08] MEDS ORDERED: INSULIN GLARGINE 100 UNITS/ML SYRINGE SC SCH (21:00)
[2016-07-08] MEDS ORDERED: ASPIRIN EC 81 MG TAB PO SCH (21:00)
[2016-07-09] MEDS ORDERED: LEVOTHYROXINE 75 MCG TAB PO SCH (06:00)
[2016-07-09] MEDS ORDERED: CHOLECALCIFEROL VIT D3 2,000 UNITS TAB/CAP PO SCH (09:00)
[2016-07-09] MEDS ORDERED: FUROSEMIDE 40 MG TAB PO SCH (09:00)
== END 2016-07-08 17:44 ==
LOC: F3E 07-08 01:48
PROVIDERS: ADMIT Internal Medicine; ATTEND Internal Medicine
DX: R41.82 Altered mental status, unspecified (principal); G93.40 Encephalopathy, unspecified; F03.90 Unspecified dementia, unspecified severity, without behavioral disturbance, psychotic disturbance, mood disturbance, and anxiety; N17.9 Acute kidney failure, unspecified; N18.9 Chronic kidney disease, unspecified; E11.22 Type 2 diabetes mellitus with diabetic chronic kidney disease; D64.9 Anemia, unspecified; I12.9 Hypertensive chronic kidney disease with stage 1 through stage 4 chronic kidney disease, or unspecified chronic kidney disease; E03.9 Hypothyroidism, unspecified; Z79.4 Long term (current) use of insulin; I51.7 Cardiomegaly; Z86.73 Personal history of transient ischemic attack (TIA), and cerebral infarction without residual deficits; Z66 Do not resuscitate
CPT/HCPCS: 71020; 96360; 97165; 99285; G0378; G8987; G8988; J1815; J1956

== ENCOUNTER 2017-02-09 19:34 | Inpatient (IN) | payer OTHER, MEDICAID ==
--- NOTE | 2017-02-09 20:31 | CPEKG ---
Heart Rate: 79 RR Interval: 759 P-R Interval: 132 QRSD Interval: 110 QT Interval: 388 QTC Interval: 445 P [place]: 68 QRS [place]: 2 T Wave [place]: 46 EKG Severity - ABNORMAL ECG - EKG Impression: SINUS RHYTHM EKG Impression: PROBABLE LEFT ATRIAL ABNORMALITY EKG Impression: INCOMPLETE RIGHT BUNDLE BRANCH BLOCK Electronically Signed By: Gaudencio Paredes 09-Feb-2017 22:34:22
--- NOTE | 2017-02-09 20:39 | EDPHY ---
H & P Stated Complaint: fell at [facility]; R arm injury? Source: Patient, Family, assisted records, Old records Exam Limitations: Clinical condition, Language barrier - Medical/Surgical History Hx Asthma: No Hx Chronic Respiratory Disease: No Hx Diabetes: Yes Hx Cardiac Disease: Yes Hx Renal Disease: Yes Hx Cirrhosis: No Hx Alcoholism: Yes Hx HIV/AIDS: No Hx Splenectomy or Spleen Trauma: No Other PMH: PMH: Dementia, CVA, chronic kidney disease, DM type 2, HTN. PSH: - Social History Smoking Status: Never smoked Time Seen by Provider: 02/09/17 20:37 HPI/ROS: CHIEF COMPLAINT: fall HISTORY OF PRESENT ILLNESS: 76-year-old male presents to the emergency department with his daughters after an unwitnessed fall at [facility] today. Patient has been guarding his right arm and complains of right arm pain. Patient has a history of dementia. He does not know what happened. He is acting normal per daughters aside from guarding his right arm. Family reports multiple falls over the last few months due to unsteady gait. Tetanus is up-to- date. Patient had an x-ray earlier today of his elbow that showed a possible hairline fracture of his distal humerus that the radiologist thought was old. Patient denies chest pain or shortness of breath, he has no other complaints. Patient takes aspirin daily, no other anticoagulants. REVIEW OF SYSTEMS: A comprehensive 10 point review of systems is otherwise negative aside from elements mentioned in the history of present illness. (Nicolasa Nuñez) - Physical Exam Exam: General Appearance: Alert, guarding right arm Head: Atraumatic without scalp tenderness or obvious injury Eyes: Pupils equal, round, reactive to light, EOMI, no trauma, no injection. Ears: Clear bilaterally, no perforation, no hemotympanum Nose: small superficial abrasion to nasal bridge, no rhinorrhea, no septal hematoma Neck: The cervical spine is non-tender and there is no pain or neurologic deficits with active range of motion. Cardiovascular: Heart is regular rate and rhythm. Good capillary refill all extremities. Chest: Atraumatic, equal bilateral breath sounds. Chest is non-tender to palpation. Gastrointestinal: Soft, non-tender, non-distended. No rebound, guarding, or peritoneal signs. There is no evidence of external or internal trauma. Back:There is no thoracic or lumbar spine or paraspinal tenderness. Extremities: right elbow with diffuse swelling, lacks 10 degrees of extension, pain with pronation and supination. No wrist tenderness to palpation, no shoulder tenderness to palpation, 2+ radial pulses, cap refill less than 2 seconds Neurological: Awake, alert, follows commands, moves all extremities, no facial asymmetry Skin: Right elbow with superficial abrasion, right knee with superficial abrasion, superficial abrasion to nasal bridge. (Nicolasa Nuñez) Constitutional: Initial Vital Signs Temperature (C) 36.9 C 02/09/17 19:36 Heart Rate 87 02/09/17 19:36 Respiratory Rate 16 02/09/17 19:36 Blood Pressure 160/93 H 02/09/17 19:36 O2 Sat (%) 99 02/09/17 19:36 O2 Delivery Mode Room Air Allergies/Adverse Reactions: glyburide Allergy (Verified 06/24/16 18:42) metformin Allergy (Verified 06/24/16 18:42) Home Medications: Medication Instructions Recorded Furosemide [Lasix 40 MG (*)] 40 mg PO DAILY 05/17/15 Levothyroxine [Synthroid 75 mcg 75 mcg PO DAILY06 05/17/15 (*)] Losartan Potassium [Cozaar 25 mg 25 mg PO DAILY 05/17/15 (*)] amLODIPine BESYLATE [Norvasc 5 mg 5 mg PO DAILY 05/17/15 (*)] Aspirin EC [Aspirin EC 81 mg (*)] 81 mg PO HS 08/09/15 Insulin Glargine [Lantus 100 25 units SC BID #1 btl 06/29/16 UNITS/ML (*)] Insulin Lispro [humALOG LISPRO 100 10 unit SC TIDMEAL #1 btl 06/29/16 units/ml (*)] Metoprolol Tartrate [Lopressor 25 25 mg PO BID #60 tab 06/29/16 mg (*)] Acetaminophen [Tylenol 325mg (*)] 650 mg PO Q4HRS PRN #0 tab 07/08/16 Cholecalciferol Vit D3 [Vitamin D3 2,000 units PO DAILY 07/08/16 2000 units tab (OTC)] Tamsulosin HCl [Flomax 0.4 MG (*)] 0.4 mg PO MOWEFR@21 01/25/17 valACYclovir [Valtrex (*)] 1,000 mg PO Q12HRS #0 tab 07/08/16 Medical Decision Making - Diagnostics EKG Interpretation: 12-lead EKG interpreted by me; official reading is in trace master. My interpretation is sinus rhythm, incomplete right bundle branch block rate 79 ( Gaudencio Paredes) Imaging Results: Imaging Impressions Cervical Spine CT 02/09/17 20:54 Impression: No fracture or evidence of ligamentous injury. Degenerative cervical spine disease. Findings and recommendations discussed with Nicolasa Nuñez, N.P., at 2147 hours, on February 09, 2017. Final report concurs with initial preliminary interpretation. Head CT 02/09/17 20:54 Impression: Nothing acute. Findings and recommendations discussed with Vangie CardozoP., at 2149 hours, on February 09, 2017. Final report concurs with initial preliminary interpretation. Procedures: A posterior Ortho Glass splint was applied. After application of the splint, I returned and re-examined the patient. The splint was adequately immobilizing the joint. The patients circulation and sensation were intact distal to the splint. (Nicolasa Nuñez) ED Course/Re-evaluation: IV established, CBC and chemistry panel obtained, EKG obtained. CT head and cervical spine ordered. Right elbow and humerus x-ray ordered. The EKG is unchanged from previous and shows a left bundle-branch block. CT head and neck with no acute abnormality. Pt has a distal humerus fracture. BMP shows a creatinine of 3.5, up from his usual of 2-2.5. Sodium 132. 1 liter NS ordered. Pt will be admitted to the hospitalist for worsening kidney function. Ortho has been consulted. (Nicolasa Nuñez) Other Provider: PHYSICIAN DOCUMENTATION: The patient was evaluated and managed by the nurse practitioner and myself. I have reviewed the chart and agree with the findings and plan of care as documented. In addition, I examined the patient myself at 2233. History confirmed as decreased oral intake. Physical findings as follows: Dry mucous membranes but normal motor vascular and sensory in the right hand. Splint for right elbow, admission for elevated creatinine and clinical dehydration, acute kidney injury likely from dehydration with creatinine 3.5. I am the secondary supervising physician. (Gaudencio Paredes) - Data Points Laboratory Results: Laboratory Results 02/09/17 21:50 02/09/17 21:50 02/09/17 02/09/17 21:50 21:50 WBC 6.20 10^3/uL 10^3/uL (3.80-9.50) RBC 3.87 10^6/uL L 10^6/uL (4.40-6.38) Hgb 10.4 g/dL L g/dL (13.7-17.5) Hct 30.8 % L % (40.0-51.0) MCV 79.6 fL L fL (81.5-99.8) MCH 26.9 pg L pg (27.9-34.1) MCHC 33.8 g/dL g/dL (32.4-36.7) RDW 13.9 % % (11.5-15.2) Plt Count 168 10^3/uL 10^3/uL (150-400) MPV 10.4 fL fL (8.7-11.7) Neut % (Auto) 76.1 % H % (39.3-74.2) Lymph % (Auto) 12.1 % L % (15.0-45.0) Gilpin % (Auto) 8.7 % % (4.5-13.0) Eos % (Auto) 1.8 % % (0.6-7.6) Baso % (Auto) 0.3 % % (0.3-1.7) Nucleat RBC Rel Count 0.0 % % (0.0-0.2) Absolute Neuts (auto) 4.72 10^3/uL 10^3/uL (1.70-6.50) Absolute Lymphs (auto) 0.75 10^3/uL L 10^3/uL (1.00-3.00) Absolute Monos (auto) 0.54 10^3/uL 10^3/uL (0.30-0.80) Absolute Eos (auto) 0.11 10^3/uL 10^3/uL (0.03-0.40) Absolute Basos (auto) 0.02 10^3/uL 10^3/uL (0.02-0.10) Absolute Nucleated RBC 0.00 10^3/uL 10^3/uL (0-0.01) Immature Gran % 1.0 % % (0.0-1.1) Immature Gran # 0.06 10^3/uL 10^3/uL (0.00-0.10) Sodium 132 mEq/L L mEq/L (134-144) Potassium 4.2 mEq/L mEq/L (3.5-5.2) Chloride 104 mEq/L mEq/L (97-110) Carbon Dioxide 18 mEq/l L mEq/l (22-31) Anion Gap 10 mEq/L mEq/L (8-16) BUN 60 mg/dL H mg/dL (7-23) Creatinine 3.5 mg/dL H mg/dL (0.7-1.3) Estimated GFR 17 Glucose 176 mg/dL H mg/dL (70-100) Calcium 8.4 mg/dL L mg/dL (8.5-10.4) Medications Given: Discontinued Medications Sodium Chloride (Ns) 1,000 mls @ 0 mls/hr IV EDNOW ONE; Wide Open PRN Reason: Protocol Stop: 02/09/17 22:21 Last Admin: 02/09/17 22:34 Dose: 1,000 mls Departure - Departure Disposition: [facility] Inpatient Acute Clinical Impression: Acute on chronic renal insufficiency Humerus distal fracture Qualifiers: Encounter type: initial encounter Fracture type: closed Fracture morphology: unspecified fracture morphology Laterality: right Qualified Code(s): S42.401A - Unspecified fracture of lower end of right humerus, initial encounter for closed fracture Condition: Fair
[2017-02-09 21:55] LABS: ABSOLUTE IMMATURE GRANULOCYTES 0.06 10^3/uL (0.00-0.10); ADD DIFF? NO; ADD MORPH? NO; ADD SCAN? NO; ATYPICAL LYMPHOCYTE FLAG 10 (0-99); FRAGMENT RBC FLAG 0 (0-99); HEMATOCRIT 30.8 % (40.0-51.0); HEMOGLOBIN 10.4 g/dL (13.7-17.5); LEFT SHIFT FLG 10 (0-99); LIPEMIA HEMOLYSIS FLAG 90 (0-99); MEAN CELL HEMOGLOBIN 26.9 pg (27.9-34.1); MEAN CELL HEMOGLOBIN CONCENTR. 33.8 g/dL (32.4-36.7); MEAN CELL VOLUME 79.6 fL (81.5-99.8); MEAN PLATELET VOLUME 10.4 fL (8.7-11.7); PLATELET CLUMPS FLAG 0 (0-99); PLATELET COUNT 168 10^3/uL (150-400); RED BLOOD CELL COUNT 3.87 10^6/uL (4.40-6.38); RED CELL DISTRIBUTION WIDTH 13.9 % (11.5-15.2)
[2017-02-09 22:16] LABS: ANION GAP 10 mEq/L (8-16); CALCIUM 8.4 mg/dL (8.5-10.4); CARBON DIOXIDE 18 mEq/l (22-31); CHLORIDE 104 mEq/L (97-110); CREATININE 3.5 mg/dL (0.7-1.3); GLOMERULAR FILTRATION RATE 17; GLUCOSE 176 mg/dL (70-100); POTASSIUM 4.2 mEq/L (3.5-5.2); SODIUM 132 mEq/L (134-144)
[2017-02-09] MEDS ORDERED: NS 1,000 ML IV ONE (22:20)
[2017-02-09 23:38] LABS: COLOR PALE YELLOW; LEUKOCYTE ESTERASE,URINE NEGATIVE (NEGATIVE); NITRITE,URINE NEGATIVE (NEGATIVE)
[2017-02-10] MEDS ORDERED: ONDANSETRON DISINTEGRATING 4 MG TAB PO PRN (00:03)
[2017-02-10] MEDS ORDERED: ONDANSETRON 4 MG/2 ML VIAL IVP PRN (00:03)
[2017-02-10] MEDS ORDERED: ACETAMINOPHEN 325 MG TAB PO PRN (00:03)
[2017-02-10] MEDS ORDERED: NS 1,000 ML IV SCH (00:15)
--- NOTE | 2017-02-10 01:20 | GHP ---
[f rep st] HISTORY AND PHYSICAL DATE OF ADMISSION: 02/09/2017 HISTORY OF PRESENT ILLNESS: This is a 76-year-old male with a history of fairly significant dementi a. He was noticed by his family to have fallen several times in the last week with bruises in multi ple areas. They are unsure if this is due to his physical state or [facility]. They stated that they discovered that his arm was painful, that it was very painful today. They ins isted that he come to the emergency department in spite of significant resistance from the skilled n ursing facility. Here he was found to have a right humerus fracture. The patient himself denies an y pain. There had been no witnessed falls. There is the possibility that he has not been eating ov er the last several days. No dysuria or diarrhea, or nausea or vomiting. REVIEW OF SYSTEMS: Limited review obtained secondary to the patient's mental status. PAST MEDICAL HISTORY: 1. Fairly end-stage dementia. 2. Type 2 diabetes. 3. Chronic kidney disease, baseline creatinine of 2.5. 4. Hypothyroidism. 5. Hypertension. MEDICATIONS: Reviewed. SOCIAL HISTORY: No smoking. No alcohol. FAMILY HISTORY: Both parents are . PHYSICAL EXAMINATION: VITAL SIGNS: Afebrile. Blood pressure is 170/81. Heart rate is 73. Oxygen saturation 97% on room air. GENERAL: The patient is well developed, no apparent distress. HEENT: Nonicteric sclerae. Extraocular muscles intact. Moist mucous membranes. NECK: Supple. No thyr omegaly. LUNGS: Good effort. Clear to auscultation bilaterally. CARDIOVASCULAR: Regular rate an d rhythm. No murmurs or gallops. ABDOMEN: Positive bowel sounds. Soft, nontender, nondistended. No hepatosplenomegaly. EXTREMITIES: No clubbing, cyanosis, or edema. Right arm is in a sling. N EUROLOGIC: Confused, moving all 4 extremities equally. PSYCHIATRIC: . LABORATORY DATA: White blood cell count 6, hemoglobin 10. Creatinine 3.5, baseline 2.6, sodium low at 132. Urine does not show urine infection. Humerus x-ray shows a nondisplaced distal humeral josue pracondylar fracture. Head CT is negative. Cervical spine CT is negative. EKG, personally reviewe d and interpreted, shows normal sinus rhythm, incomplete right bundle branch block. ASSESSMENT: This is a 76-year-old male who presented with possible falls and a humeral fracture. PLAN: 1. Humerus fracture. Orthopedic Surgery was called by the emergency department. This will probabl y be a nonoperative treatment. 2. Possible falls. I am not sure what the cause of this would be. He does seem to be a little bit dehydrated. Maybe it is just simple dehydration. His UA is negative. There is no other sign of i nfection. Will see how he does with some IV fluids. Get physical therapy and occupational therapy. 3. [id number] renal failure. Will give IV fluids. 4. Type 2 diabetes. Continue medications. 5. Social: The family is very unhappy with [facility], and they are inquiring about other optio ns. Will have case management see the patient. 6. Patient is a DNR. /[id number]/MODL
[2017-02-10] MEDS: HYDROCODONE/APAP 5/325 TAB PO PRN ×3 (01:40→17:17)
[2017-02-10 06:05] LABS: ABSOLUTE IMMATURE GRANULOCYTES 0.05 10^3/uL (0.00-0.10); ADD DIFF? NO; ADD MORPH? NO; ADD SCAN? NO; ATYPICAL LYMPHOCYTE FLAG 10 (0-99); FRAGMENT RBC FLAG 0 (0-99); LEFT SHIFT FLG 10 (0-99); LIPEMIA HEMOLYSIS FLAG 80 (0-99); MEAN CELL HEMOGLOBIN 26.9 pg (27.9-34.1); MEAN CELL HEMOGLOBIN CONCENTR. 33.3 g/dL (32.4-36.7); MEAN CELL VOLUME 80.6 fL (81.5-99.8); MEAN PLATELET VOLUME 10.6 fL (8.7-11.7); PLATELET CLUMPS FLAG 0 (0-99); PLATELET COUNT 147 10^3/uL (150-400); RED BLOOD CELL COUNT 3.35 10^6/uL (4.40-6.38); RED CELL DISTRIBUTION WIDTH 13.8 % (11.5-15.2)
[2017-02-10] MEDS: HEPARIN 5,000 UNIT/0.5 ML SYR SC SCH ×3 (06:14→21:26)
[2017-02-10 06:28] LABS: ANION GAP 9 mEq/L (8-16); CALCIUM 7.8 mg/dL (8.5-10.4); CARBON DIOXIDE 18 mEq/l (22-31); CHLORIDE 108 mEq/L (97-110); CREATININE 3.3 mg/dL (0.7-1.3); GLOMERULAR FILTRATION RATE 18; GLUCOSE 155 mg/dL (70-100); SODIUM 135 mEq/L (134-144)
[2017-02-10 10:35] LABS: IONIZED CALCIUM 0.99 MMOL/L (1.12-1.30)
[2017-02-10] MEDS ORDERED: LEVOTHYROXINE 50 MCG TAB PO SCH (11:00)
--- NOTE | 2017-02-10 11:15 | ASMTCASEMG ---
Living Arrangements What is your living arrangement? Who do you live Answers: With Other (Not Family) with? Type Of Residence What kind of residence do you live in? Answers: Nursing Home Facility Type of Residence Facility Name Notes: [facility] LTC, Memory Care Unit Stairs in Home Environment Answers: No Case Management Evaluation Functional: ADL / IADL Performance Deficits Due Answers: Cognitive Deficiency to: Mobility Issues Discharge Plan Comments Coordination Status Comments Notes: Reviewed chart. Pt admitted w/ a humerus fx s/p a fall. Per MD notes, pt has a hx of significant de mentia, Type II DM, CRD. Pt lives at [facility]. Call placed to Kira at to confirm . Per Kira, pt lives in LTC on the [facility] unit; is able to take pt back upon d/c. Kira reports that the pt's is currently in a rehab facility, although they do not know w hich one. Per notes, pt's family is currently unhappy w/ BM and would like to explore other options. CM will f/u w/ family. Date Signed: 02/10/2017 11:14 AM Electronically Signed By:Marlene Mejía
--- NOTE | 2017-02-10 11:49 | ASMTCMCOM ---
CM Note CM Note Notes: Met w/ pt's dghtr Rochelle to discuss [facility] () and a discharge plan. Per Rochelle, the pt "has fallen three times at ." They "are very unhappy w/ the care and refuse to allow their dad to return there." Rochelle reports that her luze r is currently at [facility], located at [address] [place] [address], following a recent hospitalization. Rochelle would like he r father to transfer to [facility] () for rehab and they will explore LTC options with the facility once they are there. Rochelle re quested CM contact Neda Mckenna at to discuss further. Call placed to Neda at , collection support specialist transferred call to DANAY Benson ; awaitng c/b. Referral faxed to . Spoke w/ PT, who agrees rehab will be appropriate for d/c. CM will cont to follow. Date Signed: 02/10/2017 11:48 AM Electronically Signed By:Marlene Mejía
[2017-02-10] MEDS ORDERED: INSULIN ASPART 8 UNIT SC SCH (12:00)
[2017-02-10] MEDS: amLODIPine BESYLATE 5 MG TAB PO SCH (12:03)
[2017-02-10] MEDS: LOSARTAN POTASSIUM 25 MG TAB PO SCH (12:03)
[2017-02-10] MEDS: METOPROLOL TARTRATE 25 MG TAB PO SCH ×2 (12:03→21:26)
[2017-02-10] MEDS: CHOLECALCIFEROL VIT D3 2,000 UNITS TAB/CAP PO SCH (12:03)
--- NOTE | 2017-02-10 12:17 | GCON ---
[f rep st] CONSULTATION CHIEF COMPLAINT: Right upper extremity pain. HISTORY OF PRESENT ILLNESS: Patient is a 76-year-old right hand dominant male who was residing at [facility] and fell yesterday on February 09, 2017 landing on his right arm. He was brought to the [facility] ER yesterday where x-rays were reviewed and show a right distal humeral supracondylar fracture that is nondisplaced. He was placed in a posterior splint and made nonweightbearing, and also a sling was applied for comfort. Patient does have a history of dementia and multiple falls. He states that there is pain in his right elbow region. He denies any other orthopedic complaints. PAST MEDICAL HISTORY: Dementia, CVA, chronic kidney disease, diabetes type 2, hypertension. PAST SURGICAL HISTORY: Unable to be obtained due to pt's mental status. MEDICATIONS: Please see medication list in chart. ALLERGIES: Glyburide and metformin. SOCIAL HISTORY: Patient does have a history of alcoholism. No tobacco use. No drug use. FAMILY HISTORY: Unable to be obtained at this time due this patient's dementia. REVIEW OF SYSTEMS: A 10-point review was negative for any other complaints, concerns, or history. PHYSICAL EXAMINATION: GENERAL: Pleasant, NAD. HEENT: NC/AT. PERRLA. EOMI. Ears and nares patent without discharge. Oropharynx is clear. NECK: Nontender to palpation, full range of motion. MUSCULOSKELETAL: Right upper extremity: There is a swelling present on the right elbow, no erythema, no ecchymosis. Tenderness to palpation over the distal humerus. Normal sensation to light touch in the right upper extremity. Distal pulse present in the right upper extremity. Able to move all digits. Neurovascularly intact distally. SKIN: Warm, dry, and intact. NEUROLOGIC: Nonfocal. No deficits noted. PSYCHIATRIC: Awake and alert. Follows commands. RADIOGRAPHS: X-rays reviewed from the right humerus show a transverse right distal humeral supracondylar fracture that is nondisplaced. IMPRESSION: Right distal humeral supracondylar fracture, nondisplaced. PLAN: Patient was examined and discussed with Dr. Aguirre. We are ordering a CT scan of the right elbow for further evaluation of the fracture. After the scan is done and reviewed, we will consider operative versus nonoperative treatment, however, given his current overall medical/mental condition and low demand, as well as non-displaced fracture, we will likely treat this non- operatively. He should remain in the splint and sling for comfort. Nonweightbearing on the right upper extremity. Pain medicines as needed. Ice and elevation to the right upper extremity. All questions were answered to the patient's satisfaction. /[id number]/MODL MTDD
[2017-02-10] MEDS: INSULIN GLARGINE 100 UNITS/ML SYRINGE SC SCH ×2 (13:09→21:26)
[2017-02-10] MEDS: INSULIN LISPRO 100 UNIT/ML SC SCH ×2 (13:10→17:17)
--- NOTE | 2017-02-10 14:31 | HOSPPROG ---
Hospitalist Progress Note Assessment/Plan: 76-year-old male admitted with frequent falls and found to have a distal right humerus fracture. Orthopedics has evaluated and placed the gentleman in a sling and his care will probably be non operative. His several medical problems and the question remains as to why he is falling. He has been a resident of [facility] since September. -dementia, severe and debilitating. -frequent falls and a question of gait instability as to the cause of these falls. There is no history of a head injury though it seems prudent to do a CT scan in the face of these frequent falls. -diabetes mellitus type 2: Will continue his usual outpatient short and long- acting insulin. -hypothyroidism on thyroid replacement it is TSH here is elevated. He shows nose clinical signs of hypothyroidism though I will increase his thyroid medication ever so slightly during this hospitalization and suggest an outpatient follow-up. -hypertension: Significant and Alexander in need of treatment. Will restart his usual antihypertensives and assess and treat as needed. -anemia with a hemoglobin of 9.0. Will follow this as there is no signs of blood loss. The orthopedic consult in care have been reviewed. All x-rays have been reviewed. CT scan will be ordered. PT and OT will assist in his care. Case management is searching for an no other placement other than [facility]. I spoke with the daughter Domenica louis for 30 minutes in all questions were answered. Time: Overall time was 55 minutes. Subjective: He is alert and answer short questions. The family says this is the most appropriate he has been in several days. Objective: Vital Signs Temp Pulse Resp BP Pulse Ox 36.5 C 64 16 154/75 H 99 02/10/17 11:38 02/10/17 11:38 02/10/17 11:38 02/10/17 11:38 02/10/17 11:38 Laboratory Results 02/10/17 04:41 02/10/17 04:41 02/09/17 02/10/17 02/11/17 05:59 05:59 05:59 Intake Total 1409 Balance 1409 Selected Entries 02/09/17 02/09/17 02/09/17 19:36 22:45 23:35 Blood Pressure 160/93 H 170/92 H 170/81 H 02/10/17 02/10/17 02/10/17 04:37 08:00 11:38 Blood Pressure 170/99 H 195/89 H 154/75 H Laboratory Tests 02/09/17 02/09/17 02/10/17 21:50 21:50 04:41 Hgb 10.4 L 9.0 L Sodium 132 L BUN Creatinine POC Glucose Calcium Ionized Calcium TSH 02/10/17 02/10/17 02/10/17 04:41 10:04 10:06 Hgb Sodium 135 BUN 53 H Creatinine 3.3 H POC Glucose 167 H Calcium 7.8 L Ionized Calcium 0.99 L TSH 02/10/17 10:06 Hgb Sodium BUN Creatinine POC Glucose Calcium Ionized Calcium TSH 10.500 H - Time Spent With Patient Time Spent with Patient: greater than 35 minutes Time Spent with Patient: Greater than 35 minutes spent on this patients care, greater than 50% of time spent counseling, educating, and coordinating care regarding the above mentioned plan. - Pending Discharge Pending Discharge Within 24 Hours: No Pending Discharge Within 48 Hours: No - Physical Exam Constitutional: no apparent distress, chronically ill appearing Eyes: PERRL, anicteric sclera Ears, Nose, Mouth, Throat: moist mucous membranes, hearing normal Cardiovascular: regular rate and rhythym, systolic murmur Respiratory: no respiratory distress, no rales or rhonchi, clear to auscultation , reduced air movement Gastrointestinal: normoactive bowel sounds, soft, non-tender abdomen, no palpable masses, tenderness Genitourinary: no bladder fullness Skin: other (Right arm is in a sling and was examined on taken out of the splint. There is an area of tenderness at the distal Jean Baptiste Michi in the supracondylar region. Mild ecchymosis is noted. He has limited range of motion.) Neurologic: CN II-XII Intact Psychiatric: interacting appropriately ICD10 Worksheet Patient Problems: Problems Problem Status Onset Acute on chronic renal insufficiency Acute Humerus distal fracture Acute Altered mental status Acute C. difficile diarrhea Acute 08/09/15 Chronic Disease Mgmt/Transitional Care Acute Chronic renal failure Acute Elevated troponin Acute Hyperglycemia Acute Hyponatremia Acute Pneumonia Acute Rash and nonspecific skin eruption Acute
[2017-02-10] MEDS: TAMSULOSIN HCL 0.4 MG CAP PO SCH (21:26)
[2017-02-10] MEDS: ASPIRIN EC 81 MG TAB PO SCH (21:26)
[2017-02-11] MEDS: hydrALAZINE 20 MG/ML VIAL IVP PRN (00:08)
[2017-02-11] MEDS: HEPARIN 5,000 UNIT/0.5 ML SYR SC SCH ×3 (06:01→21:38)
[2017-02-11] MEDS: LEVOTHYROXINE 75 MCG TAB PO SCH (06:01)
--- NOTE | 2017-02-11 07:52 | SOAPPROG ---
[facility] Progress Note Assessment/Plan: Assessment/Plan: R humerus supracondylar fracture, nondisplaced - Continue with non-operative treatment - Pain management - PT/OT - NWB RUE - Remain in sling - New splint applied today, which extends more proximally - Follow- up in the office early next week for re-evaluation, 02/16/2017 - Ortho stable 02/11/17 11:00 02/11/17 11:03 Subjective: Daughter at bedside states pt has been tolerating the sling well, and they keep reminding him not to use the RUE. Pt uses a walker at baseline and daughter is hoping he can be discharged to a rehab. Objective: Vital Signs Temp Pulse Resp BP Pulse Ox 36.6 C 66 12 169/75 H 95 02/11/17 07:36 02/11/17 07:36 02/11/17 07:36 02/11/17 07:36 02/11/17 07:36 Laboratory Results 02/10/17 04:41 02/10/17 04:41 02/10/17 02/11/17 02/12/17 05:59 05:59 05:59 Intake Total 1409 1700 Balance 1409 1700 Physical Exam - Physical Exam General Appearance: alert, no apparent distress Cardiac/Chest: normal peripheral pulses Skin: normal color, warm/dry, other (Splint and sling intact RUE) Extremities: normal inspection, normal capillary refill, other (able to move fingers well), No pedal edema, No calf tenderness, No swelling, No Gladis's sign Neuro/Psych: no motor/sensory deficits, alert ICD10 Worksheet Patient Problems: Problems Problem Status Onset Acute on chronic renal insufficiency Acute Humerus distal fracture Acute Altered mental status Acute C. difficile diarrhea Acute 08/09/15 Chronic Disease Mgmt/Transitional Care Acute Chronic renal failure Acute Elevated troponin Acute Hyperglycemia Acute Hyponatremia Acute Pneumonia Acute Rash and nonspecific skin eruption Acute
[2017-02-11] MEDS: INSULIN LISPRO 100 UNIT/ML SC SCH ×3 (08:02→18:05)
[2017-02-11] MEDS: LOSARTAN POTASSIUM 25 MG TAB PO SCH (08:39)
[2017-02-11] MEDS: INSULIN GLARGINE 100 UNITS/ML SYRINGE SC SCH ×2 (08:40→21:38)
[2017-02-11] MEDS: amLODIPine BESYLATE 5 MG TAB PO SCH (08:40)
[2017-02-11] MEDS: FUROSEMIDE 40 MG TAB PO SCH (08:40)
[2017-02-11] MEDS: METOPROLOL TARTRATE 25 MG TAB PO SCH ×2 (08:40→20:26)
[2017-02-11] MEDS: CHOLECALCIFEROL VIT D3 2,000 UNITS TAB/CAP PO SCH (08:40)
[2017-02-11] MEDS: HYDROCODONE/APAP 5/325 TAB PO PRN ×3 (09:16→19:03)
--- NOTE | 2017-02-11 14:11 | ASMTCMCOM ---
CM Note CM Note Notes: [facility] declines pt, no memory care unit. Referrals sent to [facility], [facility], [facility], [facility] \\ [facility]. S/w pt dghtrs, #[address] [facility]. CM to follow. Date Signed: 02/11/2017 02:10 PM Electronically Signed By:Ayanna Davis
--- NOTE | 2017-02-11 16:49 | HOSPPROG ---
Hospitalist Progress Note Assessment/Plan: 76-year-old male admitted with frequent falls and found to have a distal right humerus fracture. Orthopedics has evaluated and placed the gentleman in a sling and his care will probably be non operative. His several medical problems and the question remains as to why he is falling. He has been a resident of [facility] since September. today he has no complaints. He was mildly uncooperative during an evaluation although the daughter was helpful. -dementia, severe and debilitating. This likely compromises his ability to cooperate with personnel at an SNF. -frequent falls and a question of gait instability as to the cause of these falls. -diabetes mellitus type 2: Will continue his usual outpatient short and long- acting insulin. Glucose is currently in a good range. -hypothyroidism on thyroid replacement it is TSH here is elevated. I increased his Synthroid to 100 mcg per day. This should be followed up as an outpatient -hypertension: BP continues to be elevated. I will increase his Cozaar to 50 mg per day. he has some moments of bradycardia on the salt hold on the metoprolol. -anemia with a hemoglobin of 9.0. No signs of bleeding. Disposition: Case was discussed with case management. Overall he has moments of being uncooperative which make it difficult to manage him in the usual SNF. He will need a memory unit. I can find no cause for his frequent falls. It is possible he had more severe episodes of hypertension which may impair his motor function. Time: Overall time was 55 minutes. Subjective: No complaints. Objective: Vital Signs Temp Pulse Resp BP Pulse Ox 36.9 C 63 16 140/68 H 92 02/11/17 16:00 02/11/17 16:00 02/11/17 16:00 02/11/17 16:00 02/11/17 16:00 Laboratory Results 02/10/17 04:41 02/10/17 04:41 02/10/17 02/11/17 02/12/17 05:59 05:59 05:59 Intake Total 1409 1700 Balance 1409 1700 - Time Spent With Patient Time Spent with Patient: greater than 35 minutes Time Spent with Patient: Greater than 35 minutes spent on this patients care, greater than 50% of time spent counseling, educating, and coordinating care regarding the above mentioned plan. - Pending Discharge Pending Discharge Within 24 Hours: No Pending Discharge Within 48 Hours: No - Physical Exam Constitutional: no apparent distress, other ( Uncooperative) Eyes: PERRL, anicteric sclera Ears, Nose, Mouth, Throat: moist mucous membranes, hearing normal Cardiovascular: regular rate and rhythym, systolic murmur Respiratory: no respiratory distress, no rales or rhonchi, clear to auscultation Gastrointestinal: normoactive bowel sounds, soft, non-tender abdomen, no palpable masses Genitourinary: no bladder fullness Skin: warm Musculoskeletal: full muscle strength Neurologic: CN II-XII Intact, other ( oriented times 0 at the moment.) Psychiatric: agitated, poor judgement, poor memory ICD10 Worksheet Patient Problems: Problems Problem Status Onset Acute on chronic renal insufficiency Acute Rash and nonspecific skin eruption Acute Altered mental status Acute Pneumonia Acute Elevated troponin Acute Chronic renal failure Acute Chronic Disease Mgmt/Transitional Care Acute C. difficile diarrhea Acute 08/09/15 Hyperglycemia Acute Hyponatremia Acute Humerus distal fracture Acute
[2017-02-11] MEDS ORDERED: MAGNESIUM HYDROXIDE 30 ML UDCUP PO PRN (19:31)
[2017-02-11] MEDS ORDERED: BISACODYL 10 MG SUPP PR PRN (19:31)
[2017-02-11] MEDS ORDERED: LACTULOSE 20 GM/30 ML UDCUP PO PRN (19:31)
[2017-02-11] MEDS ORDERED: POLYETHYLENE GLYCOL 3350 17 GM PKT PO PRN (19:31)
[2017-02-11] MEDS: ASPIRIN EC 81 MG TAB PO SCH (20:25)
[2017-02-11] MEDS: SENNOSIDES/DOCUSATE SODIUM TAB PO SCH (20:25)
[2017-02-12] MEDS: LEVOTHYROXINE 75 MCG TAB PO SCH (05:30)
[2017-02-12] MEDS: HEPARIN 5,000 UNIT/0.5 ML SYR SC SCH ×3 (05:30→21:08)
[2017-02-12] MEDS: HYDROCODONE/APAP 5/325 TAB PO PRN (05:43)
[2017-02-12] MEDS: SENNOSIDES/DOCUSATE SODIUM TAB PO SCH ×2 (08:32→20:52)
[2017-02-12] MEDS: LOSARTAN POTASSIUM 25 MG TAB PO SCH (08:32)
[2017-02-12] MEDS: METOPROLOL TARTRATE 25 MG TAB PO SCH ×2 (08:32→20:51)
[2017-02-12] MEDS: FUROSEMIDE 40 MG TAB PO SCH (08:32)
[2017-02-12] MEDS: INSULIN GLARGINE 100 UNITS/ML SYRINGE SC SCH ×2 (08:33→22:31)
[2017-02-12] MEDS: CHOLECALCIFEROL VIT D3 2,000 UNITS TAB/CAP PO SCH (08:33)
[2017-02-12] MEDS: amLODIPine BESYLATE 5 MG TAB PO SCH (08:33)
[2017-02-12] MEDS: INSULIN LISPRO 100 UNIT/ML SC SCH ×3 (08:37→17:41)
--- NOTE | 2017-02-12 09:04 | SOAPPROG ---
SOAP Progress Note Assessment/Plan: Assessment/Plan: R humerus supracondylar fracture, nondisplaced - Continue with non-operative treatment - Pain management - PT/OT - NWB RUE - Remain in sling - Follow- up in the office early next week for re-evaluation, 02/16/2017 - Ortho stable 02/11/17 11:00 02/11/17 11:03 02/12/17 09:03 Subjective: Daughter at bedside and states pt did well overnight and pain has been well- managed. Objective: Vital Signs Temp Pulse Resp BP Pulse Ox 37.1 C 75 18 191/84 H 94 02/12/17 08:00 02/12/17 08:00 02/12/17 08:00 02/12/17 08:00 02/12/17 08:00 Laboratory Results 02/10/17 04:41 02/10/17 04:41 02/11/17 02/12/17 02/13/17 05:59 05:59 05:59 Intake Total 1700 250 Output Total 650 Balance 1700 -400 Physical Exam - Physical Exam General Appearance: alert, no apparent distress Cardiac/Chest: normal peripheral pulses Skin: normal color, warm/dry, other (ecchymosis RUE) Extremities: normal inspection, normal capillary refill, No pedal edema, No calf tenderness, No swelling, No Gladis's sign Neuro/Psych: no motor/sensory deficits, alert, No oriented x 3 ICD10 Worksheet Patient Problems: Problems Problem Status Onset Acute on chronic renal insufficiency Acute Humerus distal fracture Acute Altered mental status Acute C. difficile diarrhea Acute 08/09/15 Chronic Disease Mgmt/Transitional Care Acute Chronic renal failure Acute Elevated troponin Acute Hyperglycemia Acute Hyponatremia Acute Pneumonia Acute Rash and nonspecific skin eruption Acute
--- NOTE | 2017-02-12 13:32 | HOSPPROG ---
Hospitalist Progress Note Assessment/Plan: 76-year-old male admitted with frequent falls and found to have a distal right humerus fracture. Orthopedics has evaluated and placed the gentleman in a sling and his care will probably be non operative. His several medical problems and the question remains as to why he is falling. He has been a resident of [facility] since September. Today has no complaints and he is more cooperative than he was yesterday. -dementia, severe and debilitating. This likely compromises his ability to cooperate with personnel at an SNF. I have reviewed his mental status and behavior with his family and with Nephrology DrAleksander Mckenzie who knows him. They report that his behavior is at its baseline. -frequent falls and a question of gait instability as to the cause of these falls. PT is working with the gentleman and when he is cooperative he can ambulate with assistance. 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 - Right humeral fracture: This fracture is nondisplaced and can be treated with a splint for the next 6-8 weeks. There is no surgical intervention planned. It should heal nicely and does not appear to result in significant pain. Tylenol should be sufficient for his pain -diabetes mellitus type 2: Will continue his usual outpatient short and long- acting insulin. Glucose is currently in a good range. -hypothyroidism on thyroid replacement it is TSH here is elevated. I increased his Synthroid to 100 mcg per day. This should be followed up as an outpatient -hypertension: BP continues to be elevated. I will increase his Cozaar to 50 mg per day. he has some moments of bradycardia And thus I will not increase his metoprolol. -anemia with a hemoglobin of 9.0. No signs of bleeding. - Chronic kidney disease stage 3 to 4. patient is followed by Nephrology and his renal function at this time is at its baseline. Due to both his behavior and his dementia he is not a dialysis patient per Nephrology. I have I have discussed this with the family and with Nephrology and all members of the family understand. I have spoken with Dee and Domenica. Disposition: Case was discussed with case management. Overall he has moments of being uncooperative which make it difficult to manage him in the usual SNF. He will need a memory unit. I can find no cause for his frequent falls. It is possible he had more severe episodes of hypertension which may impair his motor function. Time: Overall time was 55 minutes. Subjective: no complaints he was sleeping comfortably at the time of my evaluation although could be easily aroused and interacted appropriately although he is oriented times 0. He denied any pain. Right arm is in a splint Objective: Vital Signs Temp Pulse Resp BP Pulse Ox 36.7 C 53 L 16 160/82 H 97 02/12/17 11:38 02/12/17 11:38 02/12/17 11:38 02/12/17 11:38 02/12/17 11:38 Laboratory Results 02/10/17 04:41 02/10/17 04:41 02/11/17 02/12/17 02/13/17 05:59 05:59 05:59 Intake Total 1700 250 Output Total 650 Balance 1700 -400 Laboratory Tests 02/10/17 02/10/17 02/10/17 04:41 04:41 10:06 Hgb 9.0 L BUN 53 H Creatinine 3.3 H TSH 10.500 H - Time Spent With Patient Time Spent with Patient: greater than 35 minutes Time Spent with Patient: Greater than 35 minutes spent on this patients care, greater than 50% of time spent counseling, educating, and coordinating care regarding the above mentioned plan. - Pending Discharge Pending Discharge Within 24 Hours: No Pending Discharge Within 48 Hours: Yes Pending Discharge Date: 02/14/17 Pending Discharge Time: 11:00 - Physical Exam Constitutional: no apparent distress, appears nourished Eyes: PERRL, anicteric sclera Ears, Nose, Mouth, Throat: moist mucous membranes, hearing normal Cardiovascular: regular rate and rhythym, no murmur, rub, or gallop, systolic murmur Respiratory: no respiratory distress, no rales or rhonchi, clear to auscultation Gastrointestinal: normoactive bowel sounds, soft, non-tender abdomen, no palpable masses, tenderness Genitourinary: no bladder fullness Skin: warm Musculoskeletal: full muscle strength, other ( right arm is in a splint with an Ward bandage for the distal humeral fracture. The fracture is nondisplaced.) Neurologic: CN II-XII Intact ( Oriented times 0.) Psychiatric: flat affect, agitated, other ( patient is agitated at times demonstrating poor insight judgment and poor memory. This is his baseline mental status) ICD10 Worksheet Patient Problems: Problems Problem Status Onset Acute on chronic renal insufficiency Acute Rash and nonspecific skin eruption Acute Altered mental status Acute Pneumonia Acute Elevated troponin Acute Chronic renal failure Acute Chronic Disease Mgmt/Transitional Care Acute C. difficile diarrhea Acute 08/09/15 Hyperglycemia Acute Hyponatremia Acute Humerus distal fracture Acute
[2017-02-12] MEDS ORDERED: LOSARTAN POTASSIUM 25 MG TAB PO ONE (13:34)
[2017-02-12] MEDS: hydrALAZINE 20 MG/ML VIAL IVP PRN (17:14)
[2017-02-12] MEDS: ACETAMINOPHEN 325 MG TAB PO PRN (20:51)
[2017-02-12] MEDS: ASPIRIN EC 81 MG TAB PO SCH (20:51)
[2017-02-12] MEDS: TAMSULOSIN HCL 0.4 MG CAP PO SCH (20:52)
[2017-02-13 05:40] LABS: % IMMATURE GRANULYOCYTES 0.9 % (0.0-1.1); ABSOLUTE IMMATURE GRANULOCYTES 0.04 10^3/uL (0.00-0.10); ADD DIFF? NO; ADD MORPH? NO; ADD SCAN? NO; ATYPICAL LYMPHOCYTE FLAG 10 (0-99); FRAGMENT RBC FLAG 0 (0-99); HEMATOCRIT 27.9 % (40.0-51.0); HEMOGLOBIN 9.4 g/dL (13.7-17.5); LEFT SHIFT FLG 10 (0-99); LIPEMIA HEMOLYSIS FLAG 80 (0-99); MEAN CELL HEMOGLOBIN 26.9 pg (27.9-34.1); MEAN CELL HEMOGLOBIN CONCENTR. 33.7 g/dL (32.4-36.7); MEAN CELL VOLUME 79.9 fL (81.5-99.8); MEAN PLATELET VOLUME 9.1 fL (8.7-11.7); PLATELET CLUMPS FLAG 20 (0-99); PLATELET COUNT 146 10^3/uL (150-400); RED BLOOD CELL COUNT 3.49 10^6/uL (4.40-6.38); RED CELL DISTRIBUTION WIDTH 14.1 % (11.5-15.2)
[2017-02-13 05:58] LABS: ALBUMIN 2.8 g/dL (3.5-5.0); ANION GAP 10 mEq/L (8-16); CARBON DIOXIDE 18 mEq/l (22-31); CHLORIDE 107 mEq/L (97-110); GLOMERULAR FILTRATION RATE 20; GLUCOSE 208 mg/dL (70-100); POTASSIUM 5.2 mEq/L (3.5-5.2); SODIUM 135 mEq/L (134-144)
[2017-02-13] MEDS: hydrALAZINE 20 MG/ML VIAL IVP PRN (06:04)
[2017-02-13] MEDS: HEPARIN 5,000 UNIT/0.5 ML SYR SC SCH ×4 (06:04→23:00)
[2017-02-13] MEDS: LEVOTHYROXINE 75 MCG TAB PO SCH (06:07)
[2017-02-13] MEDS: INSULIN GLARGINE 100 UNITS/ML SYRINGE SC SCH ×2 (08:01→22:59)
[2017-02-13] MEDS: LOSARTAN POTASSIUM 25 MG TAB PO SCH (08:03)
[2017-02-13] MEDS: FUROSEMIDE 40 MG TAB PO SCH (08:03)
[2017-02-13] MEDS: METOPROLOL TARTRATE 25 MG TAB PO SCH ×2 (08:04→22:07)
[2017-02-13] MEDS: amLODIPine BESYLATE 5 MG TAB PO SCH (08:04)
[2017-02-13] MEDS: SENNOSIDES/DOCUSATE SODIUM TAB PO SCH ×2 (08:04→22:07)
[2017-02-13] MEDS: CHOLECALCIFEROL VIT D3 2,000 UNITS TAB/CAP PO SCH (08:05)
[2017-02-13] MEDS: ACETAMINOPHEN 325 MG TAB PO PRN (08:09)
[2017-02-13] MEDS: INSULIN LISPRO 100 UNIT/ML SC SCH ×3 (08:54→18:46)
[2017-02-13] MEDS: HYDROCODONE/APAP 5/325 TAB PO PRN ×2 (11:04→18:23)
[2017-02-13 15:41] VITALS: RESP 16
--- NOTE | 2017-02-13 16:06 | HOSPPROG ---
Hospitalist Progress Note Assessment/Plan: # dementia # R humeral fracture # frequent falls, gait instability # hypothyroid # DM2 - insulin # htn # anemia # Objective: Vital Signs Temp Pulse Resp BP Pulse Ox 36.9 C 68 16 144/66 H 96 02/13/17 15:40 02/13/17 15:40 02/13/17 15:40 02/13/17 15:40 02/13/17 04:00 Laboratory Results 02/13/17 05:30 02/13/17 05:30 02/12/17 02/13/17 02/14/17 05:59 05:59 05:59 Intake Total 250 200 240 Output Total 650 900 Balance -400 -700 240 ICD10 Worksheet Patient Problems: Problems Problem Status Onset Acute on chronic renal insufficiency Acute Rash and nonspecific skin eruption Acute Altered mental status Acute Pneumonia Acute Elevated troponin Acute Chronic renal failure Acute Chronic Disease Mgmt/Transitional Care Acute C. difficile diarrhea Acute 08/09/15 Hyperglycemia Acute Hyponatremia Acute Humerus distal fracture Acute
--- NOTE | 2017-02-13 16:43 | ASMTCMCOM ---
CM Note CM Note Notes: Today family willing to [facility]. [facility] declines after talking to [facility] staff because BM reports pt does wander when family is not around. Pt accepted at [facility], family will visit. Pending are [facility] and [facility]. CM to follow. Date Signed: 02/13/2017 04:43 PM Electronically Signed By:Ayanna Davis
[2017-02-13] MEDS: ASPIRIN EC 81 MG TAB PO SCH (22:07)
[2017-02-13] MEDS: TAMSULOSIN HCL 0.4 MG CAP PO SCH (22:07)
[2017-02-14 03:01] VITALS: TEMP 98.9
[2017-02-14] MEDS: LEVOTHYROXINE 75 MCG TAB PO SCH (05:40)
[2017-02-14] MEDS: HYDROCODONE/APAP 5/325 TAB PO PRN (05:40)
[2017-02-14] MEDS: HEPARIN 5,000 UNIT/0.5 ML SYR SC SCH ×2 (05:41→15:07)
[2017-02-14 06:04] LABS: ALBUMIN 3.4 g/dL (3.5-5.0); ANION GAP 14 mEq/L (8-16); CALCIUM 8.7 mg/dL (8.5-10.4); CARBON DIOXIDE 18 mEq/l (22-31); CHLORIDE 106 mEq/L (97-110); GLOMERULAR FILTRATION RATE 20; GLUCOSE 146 mg/dL (70-100); POTASSIUM 5.1 mEq/L (3.5-5.2); SODIUM 138 mEq/L (134-144)
[2017-02-14 07:57] VITALS: BP 167/82; PULSE 56; O2SAT 95
[2017-02-14] MEDS: amLODIPine BESYLATE 5 MG TAB PO SCH (08:45)
[2017-02-14] MEDS: INSULIN GLARGINE 100 UNITS/ML SYRINGE SC SCH (08:45)
[2017-02-14] MEDS: METOPROLOL TARTRATE 25 MG TAB PO SCH (08:46)
[2017-02-14] MEDS: SENNOSIDES/DOCUSATE SODIUM TAB PO SCH (08:46)
[2017-02-14] MEDS: FUROSEMIDE 40 MG TAB PO SCH (08:46)
[2017-02-14] MEDS: CHOLECALCIFEROL VIT D3 2,000 UNITS TAB/CAP PO SCH (08:46)
[2017-02-14] MEDS: LOSARTAN POTASSIUM 25 MG TAB PO SCH (08:46)
[2017-02-14] MEDS: INSULIN LISPRO 100 UNIT/ML SC SCH ×2 (08:47→12:22)
[2017-02-14] MEDS: ACETAMINOPHEN 325 MG TAB PO PRN (15:07)
--- NOTE | 2017-02-14 15:16 | PDIAF ---
- Diagnosis Diagnosis: Humerus Fracture Code Status: Do Not Resuscitate - Medication Management Discharge Medications: Medications to Continue on Transfer Furosemide [Lasix 40 MG (*)] 40 mg PO DAILY 05/17/15 [Last Taken 08/08/15] Losartan Potassium [Cozaar 25 mg (*)] 25 mg PO DAILY 05/17/15 [Last Taken ] amLODIPine BESYLATE [Norvasc 5 mg (*)] 5 mg PO DAILY 05/17/15 [Last Taken ] Aspirin EC [Aspirin EC 81 mg (*)] 81 mg PO HS 08/09/15 [Last Taken 08/07/15] Metoprolol Tartrate [Lopressor 25 mg (*)] 25 mg PO BID #60 tab 06/29/16 [Last Taken Unknown] Acetaminophen [Tylenol 325mg (*)] 650 mg PO Q4HRS PRN #0 tab 07/08/16 [Last Taken Unknown] Cholecalciferol Vit D3 [Vitamin D3 2000 units tab (OTC)] 2,000 units PO DAILY [Last Taken Unknown] Tamsulosin HCl [Flomax 0.4 MG (*)] 0.4 mg PO MOWEFR@21 07/08/16 [Last Taken Unknown] Insulin Aspart [novoLOG] 8 unit SC TIDMEAL 02/10/17 [Last Taken Unknown] Insulin Glargine [Lantus 100 UNITS/ML (*)] 20 units SC HS 02/10/17 [Last Taken Unknown] Insulin Glargine [Lantus 100 UNITS/ML (*)] 22 units SC DAILY 02/10/17 [Last Taken Unknown] Levothyroxine [Synthroid 75 mcg (*)] 75 mcg PO DAILY06 #0 tab 02/14/17 [Last Taken Unknown] Discharge Medications: Refer to the Discharge Home Medication list for PRN reason. - Orders Services needed: Registered Nurse, Certified Dope And Fabric Worker, Master Major Case Detective , Physical Therapy, Occupational Therapy Diet Recommendation: potassium restricted, ADA 2000 consistent carb Activity/Weight Bearing Restrictions: NWB RUE - Labs/Radiology BMP Date: 02/17/17 CBC Date: 02/17/17 - Follow Up Care Current Providers and Referrals: JOSELITO BEE [Other] - As per Instructions Griffin Aguirre MD [Medical Doctor] - 02/16/17 (Call for appointment)
--- NOTE | 2017-02-14 15:30 | GDS ---
[f rep st] DISCHARGE SUMMARY FINAL DIAGNOSES: 1. Humerus fracture. 2. Falls. 3. Gait instability. 4. Acute on chronic renal failure. 5. Type 2 diabetes. 6. Anemia. 7. Hypertension. HISTORY OF PRESENT ILLNESS: This is a 76-year-old man who was admitted from [facility] after fal ls. He was found to have a right humeral fracture. HOSPITAL COURSE: 1. Right upper extremity humeral fracture, seen by Orthopedics who recommended nonweightbearing. T his is nonoperative. He should also remain in a sling. He should follow up with Dr. Aguirre for r eevaluation the week of 02/16/2017. 2. Acute on chronic renal failure. His baseline creatinine is about 2.5-3. It is 3 on the day of discharge. His potassium is 5.1 and his bicarb is 18. He follows with Dr. Núñez. I have written for him to have a low potassium diet and to recheck a basic metabolic panel on 02/17/2017. 3. Dementia. His daughters are very involved. This does complicate his care. 4. Hypothyroid. His TSH was elevated at 10. His Synthroid was increased from 50-75 mcg. They jen uld recheck a TSH in about 6 weeks. 5. Diabetes mellitus type 2. He has somewhat labile blood sugars. I have continued him on his pre vious glargine. This could be titrated in the future. 6. Hypertension. Will continue his home medications. BILLING: I spent more than 30 minutes on the day of discharge coordinating care. /[id number]/MODL
--- NOTE | 2017-02-14 15:33 | ASMTCMCOM ---
CM Note CM Note Notes: Pt discharged today to [facility] in [place]. Final orders faxed. report called in by RN. Family andrade donaldson ptAleksander Torres at [facility] gave approval. Date Signed: 02/14/2017 03:32 PM Electronically Signed By:Ct Funez
--- NOTE | 2017-02-14 15:34 | ASDISCHSUM ---
Discharge Information Plan Status:SNF Medically Cleared to Leave: Discharge Date: D/C Disposition:[facility] Facility [facility] D/C Disposition:Halfway Facility Projected Discharge Date:02/14/2017 11:00 AM Transportation at D/C: Discharge Delay Reason: Follow-Up Date:02/14/2017 11:00 AM Discharge Slot: Final Diagnosis: Placement Information Referral Type:*Skilled Nursing/SNF Referral ID:[id number] [facility] Address 1:[address] Address 2: City:[place] Selection Factors: State:[place] Patient Contact Information Contact Name:ELODIA Relationship: Address:[address] Work Phone: City:[facility] [facility] Phone: State/Zip Code:[place] [address] Email: Financial Information Financial Class: Primary Plan Desc:MEDICARE INPATIENT Primary Plan Number:[id number] Secondary Plan Desc:MEDICA[place] Secondary Plan Number:[id number] Assessment Information [facility] Initial CM Assessment Living Arrangements What is your living Answers: With Other (Not Family) arrangement? Who do you live with? Type Of Residence What kind of residence do Answers: [facility]way Facility you live in? Type of Residence Facility Name Notes: [facility], Memory Care Unit Stairs in Home Answers: No Environment Case Management Evaluation Functional: ADL / IADL Answers: Cognitive Deficiency Performance Deficits Due to: Mobility Issues Discharge Plan Comments Coordination Status Comments Notes: Reviewed chart. Pt admitted w/ a humerus fx s/p a fall. Per MD notes, pt has a hx of significant dementia, Type II DM, CRD. Pt lives at [facility]. Call placed to Kira at to confirm . Per Kira, pt lives in LTC on the Memory Care unit; is able to take pt back upon d/c. Kira reports that the pt's is currently in a rehab facility, although they do not know which one. Per MD notes, pt's family is currently unhappy w/ BM and would like to explore other options. CM will f/u w/ family. Date Signed: 02/10/2017 11:14 AM Electronically Signed By:Marlene Mejía [facility] CM Progress Note CM Note CM Note Notes: Met w/ pt's dghtr Rochelle to discuss [facility] () and a discharge plan. Per Rochelle, the pt "has fallen three times at ." They "are very unhappy w/ the care and refuse to allow their dad to return there." Rochelle reports that her mother is currently at [facility], located at [address] [place] [address], following a recent hospitalization. Rochelle would like her father to transfer to [facility] () for rehab and they will explore LTC options with the facility once they are there. Rochelle requested CM contact Neda Mckenna at to discuss further. Call placed to Neda at , healthcare advisory services manager transferred call to [facility]; await c/b. Referral faxed to . Spoke w/ PT, who agrees rehab will be appropriate for d/c. CM will cont to follow. Date Signed: 02/10/2017 11:48 AM Electronically Signed By:Marlene Mejía [facility] CM Progress Note CM Note CM Note Notes: [facility] declines pt, no memory care unit. Referrals sent to [facility], [facility], [facility], [facility] \\[facility], [facility] is [facility]. CM to follow. Date Signed: 02/11/2017 02:10 PM Electronically Signed By:Ayanna Davis [facility] Progress Note CM Note CM Note Notes: Today [facility] [place] declines after talking to [facility] staff because BM reports pt does wander when family is not around. Pt accepted at [facility], family will visit. Pending are [facility] and [facility]. CM to follow. Date Signed: 02/13/2017 04:43 PM Electronically Signed By:Ayanna Davis [facility] CM Progress Note CM Note CM Note Notes: Pt discharged today to [facility] in [place]. Final orders faxed. report called in by RN. Family andrade Torres at [facility] gave approval. Date Signed: 02/14/2017 03:32 PM Electronically Signed By:Ct Funez Intervention Information
== END 2017-02-14 16:24 | DRG 563 ==
LOC: OBSVTOIN 22:38 → F3N 02-10 00:38
PROVIDERS: ADMIT Internal Medicine; ATTEND Internal Medicine
DX: S42.414A Nondisplaced simple supracondylar fracture without intercondylar fracture of right humerus, initial encounter for closed fracture (principal); N17.9 Acute kidney failure, unspecified; I12.9 Hypertensive chronic kidney disease with stage 1 through stage 4 chronic kidney disease, or unspecified chronic kidney disease; N18.3 Chronic kidney disease, stage 3 (moderate); E11.9 Type 2 diabetes mellitus without complications; D64.9 Anemia, unspecified; F03.90 Unspecified dementia, unspecified severity, without behavioral disturbance, psychotic disturbance, mood disturbance, and anxiety; E03.9 Hypothyroidism, unspecified; W19.XXXA Unspecified fall, initial encounter; Z86.73 Personal history of transient ischemic attack (TIA), and cerebral infarction without residual deficits; Z66 Do not resuscitate; R29.6 Repeated falls
CPT/HCPCS: 97116-GP; 97162-GP; 97166-GO; 97530-GP; 97535-GO; A4565; G8978-GP-CJ; G8979-GP-CI; G8987-GO-CK; G8988-GO-CJ; J0360; J1815

== ENCOUNTER 2017-04-22 14:19 | Inpatient (IN) | payer OTHER, MEDICAID ==
[2017-04-22] MEDS ORDERED: NA BICARBONATE 50 MEQ/50 ML VIAL ONE (14:34)
[2017-04-22] MEDS ORDERED: CALCIUM GLUC 10% 1 GM/10 ML VIAL ONE (14:34)
[2017-04-22] MEDS ORDERED: NS 1,000 ML IV ONE ×2 (14:34→14:50)
[2017-04-22] MEDS ORDERED: MIDAZOLAM 2 MG/2 ML VIAL ONE (14:35)
[2017-04-22] MEDS ORDERED: fentaNYL 100 MCG/2 ML INJ ONE (14:35)
[2017-04-22] MEDS ORDERED: LIDOCAINE 1% 300 MG/30 ML SDV ONE (14:35)
[2017-04-22] MEDS ORDERED: CALCIUM CHLORIDE 1 GM/10 ML INJ IV ONE (14:35)
[2017-04-22] MEDS ORDERED: SODIUM BICARBONATE 50 MEQ/50 ML SYR IVP ONE (14:36)
[2017-04-22] MEDS ORDERED: IOPAMIDOL (ISOVUE-370) 150 ML BTL IV ONE (14:36)
[2017-04-22] MEDS ORDERED: BIVALIRUDIN 250 MG/5 ML VIAL IV ONE (14:37)
[2017-04-22] MEDS ORDERED: INSULIN REGULAR HUMAN 100 UNIT/ML ONE (14:39)
[2017-04-22] MEDS ORDERED: INSULIN REGULAR HUMAN 100 UNIT/ML IVP ONE (14:40)
[2017-04-22 14:48] LABS: O2 CONCENTRATIION 100 % (0-100)
--- NOTE | 2017-04-22 14:48 | EDPHY ---
H & P Stated Complaint: jonathon/sob Time Seen by Provider: 04/22/17 14:20 HPI/ROS: CHIEF COMPLAINT: Syncope, abdominal pain, bradycardia HISTORY OF PRESENT ILLNESS: The patient arrives to the emergency department emergently via paramedics. The patient is demented and unable to provide history. He presents with bradycardia, a wide complex rhythm, diaphoresis, a reported history of abdominal pain and dyspnea. REVIEW OF SYSTEMS: A comprehensive 10 point review of systems is unobtainable secondary to his underlying dementia Exam Limitations: Clinical condition, Physical impairment - Medical/Surgical History Hx Asthma: No Hx Chronic Respiratory Disease: No Hx Diabetes: Yes Hx Cardiac Disease: Yes Hx Renal Disease: Yes Hx Cirrhosis: No Hx Alcoholism: Yes Hx HIV/AIDS: No Hx Splenectomy or Spleen Trauma: No Other PMH: PMH: Dementia, CVA, chronic kidney disease, DM type 2, HTN. PSH: - Social History Smoking Status: Never smoked - Physical Exam Exam: General Appearance: Obese, ill-appearing male, diaphoretic Eyes: Pupils equal and round no pallor or injection ENT, Mouth: Mucous membranes moist Respiratory: There are no retractions, lungs are clear to auscultation Cardiovascular: Bradycardic Gastrointestinal: Abdomen is soft and nontender, no masses, bowel sounds normal Neurological: Nonverbal, A&Ox0, moves all 4 extremities with 5/5 strength Skin: Warm and dry, no rashes Musculoskeletal: Neck is supple nontender Extremities: symmetrical, full range of motion Constitutional: Initial Vital Signs Heart Rate 42 L 04/22/17 14:24 Respiratory Rate 28 H 04/22/17 14:24 Blood Pressure 112/70 04/22/17 14:24 O2 Sat (%) 100 04/22/17 14:24 O2 Delivery Mode Non-Rebreather Mask O2 (L/minute) 15 Allergies/Adverse Reactions: glyburide Allergy (Verified 06/24/16 18:42) metformin Allergy (Verified 06/24/16 18:42) Home Medications: Medication Instructions Recorded Furosemide [Lasix 40 MG (*)] 40 mg PO DAILY 05/17/15 Losartan Potassium [Cozaar 25 mg 25 mg PO DAILY 05/17/15 (*)] amLODIPine BESYLATE [Norvasc 5 mg 5 mg PO DAILY 05/17/15 (*)] Aspirin EC [Aspirin EC 81 mg (*)] 81 mg PO HS 08/09/15 Metoprolol Tartrate [Lopressor 25 25 mg PO BID #60 tab 06/29/16 mg (*)] Acetaminophen [Tylenol 325mg (*)] 650 mg PO Q4HRS PRN #0 tab 07/08/16 Cholecalciferol Vit D3 [Vitamin D3 2,000 units PO DAILY 07/08/16 2000 units tab (OTC)] Tamsulosin HCl [Flomax 0.4 MG (*)] 0.4 mg PO MOWEFR@21 07/08/16 Insulin Aspart [novoLOG] 8 unit SC TIDMEAL 02/10/17 Insulin Glargine [Lantus 100 20 units SC HS 02/10/17 UNITS/ML (*)] Insulin Glargine [Lantus 100 22 units SC DAILY 02/10/17 UNITS/ML (*)] Levothyroxine [Synthroid 75 mcg 75 mcg PO DAILY06 #0 tab 02/14/17 (*)] Medical Decision Making - Diagnostics EKG Interpretation: EKG: Complete interpretation has been separately recorded in the [employer] archive. Summary impression: Left bundle branch block, inferior myocardial infarction Imaging Results: Imaging Impressions Chest X-Ray 04/22/17 14:21 Impression: Moderate CHF versus fluid overload. ED Course/Re-evaluation: The patient presents to the ED with bradycardia, diaphoresis, abdominal pain and dyspnea. The patient is critically ill appearing. The patient was brought into resuscitation room. He had an IV established. His EKG demonstrates a wide complex rhythm with inferior changes consistent with an acute ST segment elevation myocardial infarction. The patient was noted to have acute renal failure with a creatinine of 4.5 and acute hyperkalemia with a potassium of 6.2. The patient was made a cardiac alert immediately by myself. Patient underwent a stat echocardiogram which demonstrates inferior myocardial infarction. The patient was seen emergently by Dr. Valencia from Cardiology in the emergency department. The patient was seen emergently by Dr. Paulino from the hospitalist service in the department. A lengthy discussion with had with the patient's family and his regular deli associate. I do not wish to pursue PCI given the patient's poor overall health and the fact that he is not a candidate for dialysis. The decision will be made to admit the patient to the hospital for stabilization and consideration of placement into hospice. Differential Diagnosis: Differential diagnosis considered includes hyperkalemia, renal failure, myocardial infarction, pericardial tamponade, pneumonia, congestive heart failure Critical Care Time: Critical care time exclusive of procedures and exclusive of the PA's time was 65 minutes, performed by myself, Davon Main MD. The patient presents to the ED with acute renal failure, hyperkalemia, an acute myocardial infarction and then initial full course status. The patient required emergent mobilization of the blood bank laboratory technician, hospitalist service, intensive care unit and gate services supervisor. Consultation was made with the patient's family and his regular deli associate. - Data Points Laboratory Results: Laboratory Results 04/22/17 14:38 04/22/17 14:38 04/22/17 04/22/17 04/22/17 14:38 14:38 14:35 WBC 9.63 10^3/uL H 10^3/uL (3.80-9.50) RBC 3.68 10^6/uL L 10^6/uL (4.40-6.38) Hgb 10.0 g/dL L g/dL (13.7-17.5) POC Hgb Hct 32.2 % L % (40.0-51.0) POC Hct MCV 87.5 fL fL (81.5-99.8) MCH 27.2 pg L pg (27.9-34.1) MCHC 31.1 g/dL L g/dL (32.4-36.7) RDW 15.5 % H % (11.5-15.2) Plt Count 301 10^3/uL 10^3/uL (150-400) MPV 10.6 fL fL (8.7-11.7) Neut % (Auto) 89.1 % H % (39.3-74.2) Lymph % (Auto) 8.0 % L % (15.0-45.0) [place] % (Auto) 2.2 % L % (4.5-13.0) Eos % (Auto) 0.1 % L % (0.6-7.6) Baso % (Auto) 0.1 % L % (0.3-1.7) Nucleat RBC Rel Count 0.0 % % (0.0-0.2) Absolute Neuts (auto) 8.58 10^3/uL H 10^3/uL (1.70-6.50) Absolute Lymphs (auto) 0.77 10^3/uL L 10^3/uL (1.00-3.00) Absolute Monos (auto) 0.21 10^3/uL L 10^3/uL (0.30-0.80) Absolute Eos (auto) 0.01 10^3/uL L 10^3/uL (0.03-0.40) Absolute Basos (auto) 0.01 10^3/uL L 10^3/uL (0.02-0.10) Absolute Nucleated RBC 0.00 10^3/uL 10^3/uL (0-0.01) Immature Gran % 0.5 % % (0.0-1.1) Immature Gran # 0.05 10^3/uL 10^3/uL (0.00-0.10) POC Blood Source Puncture Site RIGHT RADIAL Patient Temperature 37.0 DEGREES DEGREES POC pH POC pCO2 pCO2 18 mmHg L* mmHg (34-38) POC pO2 pO2 88 mmHg H mmHg (65-75) POC HCO3 Total CO2 7 mEq/L L* mEq/L (23-27) POC Total CO2 POC Base Excess POC O2 Sat (Calc) ABG pH 7.18 L* (7.35-7.45) ABG PO2/FiO2 Ratio 88 RATIO RATIO ABG HCO3 6 mEq/L L mEq/L (22-26) ABG O2 Saturation 94 % % (92-95) ABG Base Excess -20.9 mEq/L L mEq/L (-2.5-2.5) Total O2 Concentration 15.0 LITERS LITERS O2 Concentration % 100 % % (0-100) POC FiO2 POC Sodium Sodium 138 mEq/L mEq/L (134-144) POC Potassium Potassium 6.3 mEq/L H* mEq/L (3.5-5.2) POC Chloride Chloride 110 mEq/L mEq/L (97-110) Carbon Dioxide 6 mEq/l L* mEq/l (22-31) Anion Gap 22 mEq/L H mEq/L (8-16) POC BUN BUN 68 mg/dL H mg/dL (7-23) Creatinine 4.2 mg/dL H mg/dL (0.7-1.3) POC Creatinine Estimated GFR 14 Glucose 532 mg/dL H* mg/dL (70-100) POC Glucose Calcium 8.4 mg/dL L mg/dL (8.5-10.4) Troponin I 119.000 ng/mL H ng/mL (0.000-0.034) 04/22/17 04/22/17 14:31 14:19 WBC RBC Hgb POC Hgb 10.9 gm/dL L gm/dL (13.7-17.5) Hct POC Hct 32 % L % (40-51) MCV MCH MCHC RDW Plt Count MPV Neut % (Auto) Lymph % (Auto) [place] % (Auto) Eos % (Auto) Baso % (Auto) Nucleat RBC Rel Count Absolute Neuts (auto) Absolute Lymphs (auto) Absolute Monos (auto) Absolute Eos (auto) Absolute Basos (auto) Absolute Nucleated RBC Immature Gran % Immature Gran # POC Blood Source ARTERIAL Puncture Site Patient Temperature 37.0 DEGREES DEGREES POC pH 7.17 L* (7.35-7.45) POC pCO2 17 mmHg L* mmHg (34-38) pCO2 POC pO2 86 mmHg H mmHg (65-75) pO2 POC HCO3 6 mEq/L L mEq/L (22-26) Total CO2 POC Total CO2 7 mEq/L L* mEq/L (23-27) POC Base Excess -20.0 mEq/L L mEq/L (-2.5-2.5) POC O2 Sat (Calc) 94 % % (92-95) ABG pH ABG PO2/FiO2 Ratio ABG HCO3 ABG O2 Saturation ABG Base Excess Total O2 Concentration O2 Concentration % POC FiO2 100 % % (0-100) POC Sodium 139 mEq/L mEq/L (134-144) Sodium POC Potassium 6.2 mEq/L H mEq/L (3.3-5.0) Potassium POC Chloride 113 mEq/L H mEq/L (97-110) Chloride Carbon Dioxide Anion Gap POC BUN 78 mg/dL H mg/dL (7-23) BUN Creatinine POC Creatinine 4.5 mg/dL H mg/dL (0.7-1.3) Estimated GFR Glucose POC Glucose 526 mg/dL H* mg/dL (70-100) Calcium Troponin I Medications Given: Discontinued Medications Calcium Chloride (Calcium Chloride) 1 gm IV EDNOW ONE Stop: 04/22/17 14:36 Last Admin: 04/22/17 14:36 Dose: 1 gm Sodium Chloride (Ns) 1,000 mls @ 0 mls/hr IV ONCE ONE PRN Reason: Wide Open Stop: 04/22/17 14:35 Last Admin: 04/22/17 14:34 Dose: 1,000 mls Sodium Chloride (Ns) 1,000 mls @ 0 mls/hr IV ONCE ONE PRN Reason: Wide Open Stop: 04/22/17 14:51 Last Admin: 04/22/17 14:51 Dose: 1,000 mls Insulin Human Regular (Humulin R) 10 unit IVP EDNOW ONE Stop: 04/22/17 14:41 Last Admin: 04/22/17 14:41 Dose: 10 units Sodium Bicarbonate (Sodium Bicarbonate) 50 meq IVP EDNOW ONE Stop: 04/22/17 14:37 Last Admin: 04/22/17 14:37 Dose: 50 meq Point of Care Test Results: 04/22/17 04/22/17 14:19 14:31 POC pCO2 17 L* POC pO2 86 H POC Sodium 139 POC Potassium 6.2 H POC Chloride 113 H POC BUN 78 H POC Creatinine 4.5 H POC Glucose 526 H* Departure - Departure Disposition: [facility] Inpatient Acute Clinical Impression: Acute ST elevation myocardial infarction, Renal failure, Hyperkalemia Condition: Critical Referrals: Patient,NotPresent [Primary Care Provider] - As per Instructions
[2017-04-22 14:50] LABS: BASE EXCESS -20.9 mEq/L (-2.5-2.5); BICARBONATE 6 mEq/L (22-26); MEASURED OXYGEN SATURATION 94 % (92-95); P/F RATIO 88 RATIO; PO2 88 mmHg (65-75)
[2017-04-22 14:50] LABS: % IMMATURE GRANULYOCYTES 0.5 % (0.0-1.1); ABSOLUTE IMMATURE GRANULOCYTES 0.05 10^3/uL (0.00-0.10); ADD DIFF? NO; ADD MORPH? NO; ADD SCAN? NO; ATYPICAL LYMPHOCYTE FLAG 0 (0-99); FRAGMENT RBC FLAG 0 (0-99); HEMATOCRIT 32.2 % (40.0-51.0); LEFT SHIFT FLG 0 (0-99); LIPEMIA HEMOLYSIS FLAG 80 (0-99); MEAN CELL HEMOGLOBIN 27.2 pg (27.9-34.1); MEAN CELL HEMOGLOBIN CONCENTR. 31.1 g/dL (32.4-36.7); MEAN CELL VOLUME 87.5 fL (81.5-99.8); MEAN PLATELET VOLUME 10.6 fL (8.7-11.7); PLATELET CLUMPS FLAG 10 (0-99); PLATELET COUNT 301 10^3/uL (150-400); RED BLOOD CELL COUNT 3.68 10^6/uL (4.40-6.38); RED CELL DISTRIBUTION WIDTH 15.5 % (11.5-15.2)
[2017-04-22 14:53] LABS: PCO2 18 mmHg (34-38)
[2017-04-22 14:54] LABS: TCO2 7 mEq/L (23-27)
[2017-04-22 14:58] LABS: ANION GAP 22 mEq/L (8-16); CALCIUM 8.4 mg/dL (8.5-10.4); CHLORIDE 110 mEq/L (97-110); CREATININE 4.2 mg/dL (0.7-1.3); GLOMERULAR FILTRATION RATE 14; SODIUM 138 mEq/L (134-144)
[2017-04-22 15:00] LABS: POTASSIUM 6.3 mEq/L (3.5-5.2)
[2017-04-22 15:01] LABS: CARBON DIOXIDE 6 mEq/l (22-31); GLUCOSE 532 mg/dL (70-100)
[2017-04-22 15:10] LABS: CALCULATED OXYGEN SATURATION 94 % (92-95); O2 CONCENTRATIION 100 % (0-100)
[2017-04-22] MEDS ORDERED: SODIUM BICARBONATE 50 MEQ/50 ML SYR ONE (15:15)
[2017-04-22] MEDS ORDERED: CALCIUM CHLORIDE 1 GM/10 ML INJ ONE (15:15)
--- NOTE | 2017-04-22 15:29 | CPEKG ---
Heart Rate: 42 RR Interval: 1429 QRSD Interval: 208 QT Interval: 600 QTC Interval: 502 QRS [place]: 41 T Wave [place]: -77 EKG Severity - ABNORMAL ECG - EKG Impression: JUNCTIONAL ESCAPE RHYTHM EKG Impression: LEFT BUNDLE BRANCH BLOCK EKG Impression: INFERIOR ST ELEVATION, POSSIBLY DUE TO LBBB Electronically Signed By: Davon Main 22-Apr-2017 15:51:17
[2017-04-22] MEDS ORDERED: ACETAMINOPHEN 325 MG TAB PO PRN (15:57)
[2017-04-22] MEDS ORDERED: ONDANSETRON DISINTEGRATING 4 MG TAB PO PRN (15:57)
[2017-04-22] MEDS ORDERED: ONDANSETRON 4 MG/2 ML VIAL IVP PRN (15:57)
[2017-04-22] MEDS ORDERED: NS 1,000 ML IV SCH (16:00)
[2017-04-22] MEDS ORDERED: PROMETHAZINE HCL 25 MG/ML INJ IVP PRN (16:01)
[2017-04-22] MEDS ORDERED: ATROPINE 1% 5 ML OPHT.BTL SL PRN (16:01)
[2017-04-22] MEDS ORDERED: GLYCOPYRROLATE 0.2 MG/1 ML VIAL IVP/IM PRN (16:01)
[2017-04-22] MEDS ORDERED: LORazepam 2 MG/ML INJ IVP PRN (16:01)
[2017-04-22] MEDS: IPRATROPIUM/ALBUTEROL 3 ML DEYVIAL IH SCH ×2 (16:30→22:14)
--- NOTE | 2017-04-22 16:47 | GHP ---
[f rep st] HISTORY AND PHYSICAL DATE OF ADMISSION: 04/22/2017 CHIEF COMPLAINT: Abdominal pain/shortness of breath. HISTORY OF PRESENT ILLNESS: This is a 77-year-old man with chronic kidney disease, dementia and diab etes, who presents with some shortness of breath. He was brought in after his called EMS. He a lso was maybe complaining of some abdominal pain. The patient is actually not providing any history at this point, due to his dementia and critical presentation. In the ED, he was found to have an inferior WI. Long discussions were had with his . His outpat ient physician is Dr. Núñez, on-call for Dr. Knox, Dr. Valencia. We have decided to pursue comfor t measures. Hospice has been consulted. PAST MEDICAL HISTORY: 1. Diabetes. 2. Chronic kidney disease. 3. Dementia. 4. Hypothyroid. 5. Hypertension. MEDICATIONS: Please see medication reconciliation. ALLERGIES: Glyburide, metformin. FAMILY HISTORY: Chart is reviewed and noncontributory. SOCIAL HISTORY: He is accompanied by his and many family members. REVIEW OF SYSTEMS: A 10-point review of systems is conducted and is negative except per HPI. PHYSICAL EXAM: VITAL SIGNS: Blood pressure 111/74, heart rate 53, respiration rate 22, saturating 9 7% on non-rebreather, temperature 36.8. GENERAL: The patient has a face mask on, he appears comfort able and mildly dyspneic. HEENT: Normocephalic, atraumatic. CARDIOVASCULAR: Bradycardic, it is ir regular. PULMONARY: Mild crackles bilaterally. ABDOMEN: Soft, nontender, nondistended. SKIN: No rash. : No [place]. NEUROLOGIC: He is confused. PSYCHIATRIC: Unobtainable. LABS: White count is 9, hemoglobin 10, pH 7.17, bicarb 6, pCO2 17, potassium is 6.3, creatinine 4.2, troponin 119. DATA: 1. I discussed with Dr. Main, Dr. Valencia, nurse practitioner presentation specialist for Dr. Knox. 2. I personally viewed and interpreted his chest x-ray. This shows CHF. 3. I personally viewed and interpreted his EKG. This shows inferior STEMI. IMPRESSION AND PLAN: 1. Goals of care: We have had long discussions with his family. Daughter is still en route. Howev er, feel that he is likely appropriate for Hospice/comfort care. Given his dementia, Dr. Niya odom s not feel like he would be a candidate for dialysis. I think he would certainly go into permanent r enal failure with contrast during a catheterization. I believe that his hypotension and acidosis are likely going to cause him to go into permanent renal failure, regardless. For these reasons, I thin k that doing nothing is the appropriate course of action. I discussed this with his . I let her know that I think that he will pass away probably relatively quickly, given the profile that I am se eing. He has been seen by apartment community manager. Hospice is on their way to evaluate him. Family would prefer i deally to stay in the hospital for now, as they do not feel as though they can manage him at home, bu t will follow up with Hospice. 2. ST segment elevation myocardial infarction: We will treat as above, with comfort measures. 3. Acute on chronic renal failure: Due to hypotension and ST segment elevation myocardial infarctio n. 4. Acute congestive heart failure: We will provide morphine for comfort. 5. Metabolic acidosis: He did receive some bicarb. This will likely worsen again quite quickly. 6. Code status is Do Not Resuscitate. /[id number]/MODL
[2017-04-22 17:34] VITALS: BP 111/73
--- NOTE | 2017-04-22 17:36 | GHP ---
[f rep st] HISTORY AND PHYSICAL DATE OF ADMISSION: 04/22/2017 CHIEF COMPLAINT: We have been asked by Dr. Main to evaluate this patient as a cardiac alert. HISTORY OF PRESENT ILLNESS: The patient is a 77-year-old gentleman with risk factors including age, hypertension, diabetes mellitus, and chronic renal failure, who presented to the emergency department with symptoms of dyspnea and abdominal pain. Much of the history is obtained from the patient's and family as patient suffers from fairly significant dementia. Patient was in his usual state of health until the day of admission, when he was noted to have a hard time during his routine bed change. At that time, he was complaining of symptoms of abdominal pain and shortness of breath. EMS was activated, and he was brought to the emergency department for further evaluation. In the emergency department, he had an EKG performed demonstrating sinus bradycardia, left bundle branch block morphology, inferior ST-segment elevation with prolonged QT interval, and significantly widened QRS complex. His initial troponin was elevated, and we are consulted to help in the further management of the patient. Patient does have a history of chronic renal insufficiency with a baseline creatinine between 3 and 3.5. His admission creatinine was 4.2. Patient is not felt to be a dialysis candidate given his fairly significant dementia. Patient denies a previous history of coronary artery disease. PAST MEDICAL HISTORY: 1. Dementia. 2. Cerebrovascular accident. 3. Chronic kidney disease. 4. Type 2 diabetes mellitus. 5. Hypertension. MEDICATIONS: Please see medicine reconciliation form. REVIEW OF SYSTEMS: Could not be obtained secondary to underlying dementia. PHYSICAL EXAMINATION: CONSTITUTIONAL: Patient was resting in bed. He was responsive to verbal commands. He was somewhat diaphoretic and tachypneic. VITAL SIGNS: Temperature was afebrile, pulse 41, blood pressure 85/69, respiratory rate 21, SaO2 100% on non-rebreather mask. LUNGS: Crackles through the lung pal throughout. CARDIOVASCULAR: Bradycardia, S1, S2. Grade 2/6 systolic ejection murmur noted at the left sternal border. ABDOMEN: Obese. Nontender to palpation. Normoactive bowel sounds. EXTREMITIES: Trace edema bilaterally. NEURO: Patient responded to verbal stimuli. The remainder of the physical exam was abbreviated secondary to the acute nature of patient's medical condition. LABORATORY DATA: White blood cell count 9.63, hemoglobin 10.0 hematocrit 32.2 platelet count 301. Sodium 138, potassium 6.3, chloride 110, bicarbonate 6, BUN 68, creatinine 4.2,, glucose 532. Troponin 119. ASSESSMENT AND PLAN: The patient is a 77-year-old gentleman with multiple cardiac risk factors, who presented with symptoms of abdominal pain and shortness of breath. His EKG demonstrated a left bundle branch block with acute inferior ST-segment elevation, consistent with an ST-segment elevation myocardial infarction. Talked with family regarding treatment options, including medical management for his coronary artery disease, as well as taking the patient to the cardiac catheterization laboratory for further risk stratification and management. Also discussed that patient would likely be at high risk for renal failure, potentially requiring dialysis with the procedure. Patient's family wishes to proceed with a more conservative approach, given patient was not felt to be a candidate for dialysis. Further discussion was held with the care team, including Dr. Jones, Dr. Paulino, and patient's primary power switchboard operator, Dr. Núñez, and all were comfortable with a more conservative management given his acute and chronic illnesses. /[id number]/MODL MTDD
[2017-04-22 17:38] VITALS: TEMP 96.1
[2017-04-22] MEDS ORDERED: PIPERACILLIN/TAZO 4.5 GM/DEX 100 ML IV SCH (18:00)
[2017-04-22 22:17] VITALS: PULSE 48; RESP 14; O2SAT 94
[2017-04-23] MEDS: IPRATROPIUM/ALBUTEROL 3 ML DEYVIAL IH SCH (05:13)
[2017-04-23] MEDS ORDERED: AZITHROMYCIN IV 500 MG in D5W 250 ML IV SCH (09:00)
[2017-04-23] MEDS ORDERED: ENOXAPARIN 40 MG/0.4 ML SYR SC SCH (09:00)
--- NOTE | 2017-04-23 10:27 | PDMN ---
Medical Necessity Medical necessity: Pt meets IP criteria per MD; est los >2 mn to manage comfort care measures/hospice s/p STEMI, metabolic acidosis, acute CHF, acute on chronic renal failure r/t hypotension & STEMI; hx dementia, diabetes, chronic kidney disease, htn; per H&P & order 04/22/17
--- NOTE | 2017-04-23 11:48 | ASDISCHSUM ---
Discharge Information Plan Status: Medically Cleared to Leave: Discharge Date:04/23/2017 10:00 AM CM D/C Disposition: ADT D/C Disposition: Projected Discharge Date:04/23/2017 10:00 AM Transportation at D/C: Discharge Delay Reason: Follow-Up Date:04/23/2017 10:00 AM Discharge Slot: Final Diagnosis: Placement Information Patient Contact Information Contact Name:ELODIA Relationship: Address:[address] [place] [address] Work Phone: City:[facility] Phone: State/Zip Code:[place] [address] Email: Financial Information Financial Class: Primary Plan Desc:MEDICARE INPATIENT Primary Plan Number:[id number] Secondary Plan Desc:MEDICAID [facility] Secondary Plan Number:[id number] Assessment Information [facility] CM Progress Note CM Note CM Note Notes: Pt. 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 Body is now down in more. Date Signed: 04/23/2017 11:47 AM Electronically Signed By:Claudia Shaver LCSW Intervention Information
--- NOTE | 2017-04-23 11:48 | ASMTCMCOM ---
CM Note CM Note Notes: Pt. 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 Body is now down in morgue. Date Signed: 04/23/2017 11:47 AM Electronically Signed By:Claudia Shaver LCSW
--- NOTE | 2017-04-23 19:03 | GDS ---
[f rep st] DISCHARGE SUMMARY SUMMARY DATE OF : 04/23/2017. DIAGNOSES: 1. ST-segment elevation myocardial infarction. 2. Acute on chronic renal failure. 3. Acute congestive heart failure. 4. Metabolic acidosis. CONSULTANTS: Dr. Valencia. HOSPITAL COURSE AND STAY BY PROBLEM: Acute ST-segment elevation LA: The patient presented to the [facility] on 04/22/2017 with abdominal pain and shortness of breath. He was subsequently diagnosed with an ST-segment elevation LA. He was seen by Cardiology, and after a long discussion with the patient and the family, they decided to pursue medical management. Unfortunately, the patient o n the morning of 04/23/2017. I did not see the patient prior to passing away. /[id number]/MODL
== END 2017-04-23 10:00 | disposition expired ==
LOC: EDUNIT# → F3E 17:21
PROVIDERS: ADMIT Student in an Organized Health Care Education/Training Program; ATTEND Student in an Organized Health Care Education/Training Program
DX: I21.19 ST elevation (STEMI) myocardial infarction involving other coronary artery of inferior wall (principal); N17.9 Acute kidney failure, unspecified; E87.2 Acidosis; I13.0 Hypertensive heart and chronic kidney disease with heart failure and stage 1 through stage 4 chronic kidney disease, or unspecified chronic kidney disease; N18.9 Chronic kidney disease, unspecified; I50.9 Heart failure, unspecified; F03.90 Unspecified dementia, unspecified severity, without behavioral disturbance, psychotic disturbance, mood disturbance, and anxiety; E11.9 Type 2 diabetes mellitus without complications; E03.9 Hypothyroidism, unspecified; Z86.73 Personal history of transient ischemic attack (TIA), and cerebral infarction without residual deficits
CPT/HCPCS: 82947-QW; 96374; J0583; J0610; J1644; J1815; J2250; J2405; J3010; Q9967